=== PATIENT | male | born 1990 | race Hispanic/Latino ===

== ENCOUNTER 2021-05-16 14:15 | Emergency (ER) | payer OTHER, SELFPAY ==
[2021-05-16 14:25] VITALS: BP 128/90; PULSE 70; RESP 14; TEMP 36.9; O2SAT 99; BMI 25.0
--- NOTE | 2021-05-16 14:48 | PC.NURSE ---
assessed by pac, pt reports rash to penis, reports had 5 months ago tested negative for std then and rash resolved and now back, [facility] sent here for eval
--- NOTE | 2021-05-16 15:03 | ED.MALEGU ---
HPI - Male Genitourinary General Chief complaint: Urogenital-Male Stated complaint: Intermittently itching to groin area Time Seen by Provider: 05/16/21 14:33 Source: patient Mode of arrival: Ambulatory Limitations: no limitations History of Present Illness HPI Narrative: Gogo presents today with chief complaint of rash to the shaft of his penis and his groin that started about 1 week ago. He reports that it is irritating and slightly itchy but he denies any significant pain. He has had this recur over the last year few different times and has been evaluated by his PCP. He has had multiple STD checks over the last year all of which have come back negative. He denies any new sexual partners. He has used topical antifungal cream in the past which has helped his symptoms. He is concerned that it keeps coming back. He denies any urinary symptoms, abdominal pain, fever, new topical soaps or lubricants, or any other new exposures. He has no other acute concerns or complaints at this time. Related Data Previous Rx's Medication Instructions Recorded terbinafine HCl 1 % topical cream 1 applic TOPICAL BID #15 g 05/16/21 Allergies Allergy/AdvReac Type Severity Reaction Status Date / Time No Known Drug Allergies Allergy Verified 05/16/21 14:30 Review of Systems Review of Systems Narrative: As per HPI Patient History Social History Smoking Status: Never smoker Smoking Status: Never smoker alcohol intake frequency: 0-2 drinks per day Exam Narrative Exam Narrative: Exam Narrative: Const General: cooperative, healthy appearing, comfortable, no acute distress, well developed and well groomed Nutritional Appearance: average body habitus Orientation: alert and oriented x3 HENMT Head: normal to inspection and atraumatic Ears: hearing grossly normal bilaterally Nose: external nose normal and nares normal Face and sinus: normal facial exam Neck Neck: normal visual inspection and supple Resp Effort & Inspection: normal respiratory effort, able to speak in complete sentences, no audible wheezes, not labored, no nasal flaring and no respiratory distress Neuro General: alert, oriented x3, gait normal, tone normal and moves all extremities Cognition: normal cognition Speech: speech normal Gait: normal gait GI Nondistended, no tenderness with palpation Circumcised, no penile discharge, normal meatus, normal scrotum, normal testicles. Slight irregular shaped erythematous plaque to base of penis. Additional irregular shaped plaques to bilateral inguinal regions. No inguinal lymphadenopathy noted. Psych Appearance: grossly normal and well kempt Mental Status: mental status grossly normal Speech and Movement: speech and movement normal Mood: congruent mood Affect: normal affect Initial Vital Signs Initial Vital Signs: Vital Signs Temperature 98.5 F 05/16/21 14:25 Pulse Rate 70 05/16/21 14:25 Respiratory Rate 14 05/16/21 14:25 Blood Pressure 128/90 05/16/21 14:25 Pulse Oximetry 99 05/16/21 14:25 Course Vital Signs Vital signs: Vital Signs - 8 hr 05/16/21 14:25 Temperature 98.5 F Pulse Rate 70 Respiratory Rate 14 Blood Pressure 128/90 Pulse Oximetry 99 MDM - Male Genitourinary Lab Data Labs: Urine Dip Bedside Urine Glucose Negative Bedside Urine Bilirubin - Negative Bedside Urine Ketone - Negative Urine Specific [place] 1.010 Bedside Urine Occult Blood - Negative Bedside Urine pH 6.0 Bedside Urine Protein - Negative Bedside Urine Urobilinogen - Negative Bedside Urine Nitrite - Negative Bedside Urine Leukocytes - Negative Esterase Discharge Plan Departure Patient Disposition: Home Clinical Impression: Tinea of groin Discharge Date/Time: 05/16/21 15:18 Activity Restrictions/Additional Instructions: It was nice to me this afternoon. Please use this topical antifungal cream to help with your symptoms. Please follow-up with your PCP if symptoms fail to improve as expected. Thank you Paramjit Walters PA-C Prescriptions: New terbinafine HCl 1 % cream 1 applic topical BID Qty: 15 RF: 0
== END 2021-05-16 15:18 | disposition home or self-care (01) ==
PROVIDERS: Emergency Provider Physician Assistant
DX: B35.6 Tinea cruris (principal)
CPT/HCPCS: 81003; 99281; 99282

== ENCOUNTER 2021-08-20 20:03 | Emergency (ER) | payer OTHER, SELFPAY ==
[2021-08-20 20:14] VITALS: BP 136/97; PULSE 63; RESP 16; TEMP 36.9; O2SAT 98
[2021-08-20 20:44] LABS: Add Manual Diff / Slide Review NO; Basophils Absolute Auto 100 /uL (0-100); Basophils Percent Auto 0.7 % (0-2); Eosinophils Absolute Auto 200 /uL (0-450); Eosinophils Percent Auto 1.8 % (2-4); Hematocrit 50.2 % (41-53); Hemoglobin 16.7 g/dL (13.5-17.5); Lymphocytes Absolute Auto 2900 /uL (1100-4500); Mean Corpuscular HGB Conc 33.3 % (30-36); Mean Corpuscular Hemoglobin 28.9 PG (26-34); Mean Corpuscular Volume 86.7 fL (80-100); Monocytes Absolute Auto 700 /uL (0-900); Monocytes Percent Auto 8.6 % (3-14); Neutrophils Absolute Auto 4700 /uL (1500-7000); Neutrophils Percent Auto 54.9 % (50-75); Platelet Count 172 X10^3/uL (150-400); Red Cell Distribution Width 15.5 % (11.6-14.8); White Blood Cell Count 8.6 X10^3/uL (4.5-11.0)
[2021-08-20 20:49] LABS: UR Morphine/Opiate cutoff 300 Negative (Negative); Ur Creatinine Normal (Normal); Ur Specific Gravity Normal (Normal); Urine Amphetamines Negative (Negative); Urine Barbiturates Negative (Negative); Urine Benzodiazepines Negative (Negative); Urine Cocaine Negative (Negative); Urine MDMA Negative (Negative); Urine Methadone Negative (Negative); Urine Methamphetamines Negative (Negative); Urine Oxycodone Negative (Negative); Urine Phencyclidine Negative (Negative); Urine Tetrahydrocannabinol Negative (Negative); Urine Tricyclic Antidepressant Negative (Negative); Urine pH Normal (Normal)
[2021-08-20 20:49] LABS: Acetaminophen < 10 ug/mL (10-30); Alanine Aminotransferase 27 IU/L (<50); Albumin Globulin Ratio 1.5 (1.0-2.8); Alkaline Phosphatase 84 U/L (38-126); Aspartate Aminotransferase 50 IU/L (17-59); BUN Creatinine Ratio 16.7 (6-22); Bilirubin Total 0.6 mg/dL (0.2-1.3); Blood Urea Nitrogen 19 mg/dL (9-20); Calcium 9.5 mg/dL (8.4-10.2); Carbon Dioxide 29 mmol/L (22-32); Chloride 102 mmol/L (98-107); Estimated Glomerular Filt Rate > 60.0 mL/min (>60); Ethanol (ETOH) < 10 mg/dL; Globulin 3.3 g/dL (1.7-4.1); Glucose 95 mg/dL (70-100); HEMOLYSIS 21 (0-50); Potassium 4.3 mmol/L (3.4-5.1); Salicylate < 1.0 mg/dL (<20); Sodium 141 mmol/L (137-145); Total Protein 8.3 g/dL (6.3-8.2)
[2021-08-20 20:58] LABS: Bacteria Urine None Seen; Culture Indicated Urine Cult Not Indicated; RBC Urine 0-1/HPF (0-5/HPF); WBC Urine 0-1/HPF (0-5/HPF)
[2021-08-20 21:01] LABS: COVID19 -Nasal RAPID Negative (Negative)
[2021-08-20 21:44] LABS: Free T4, Direct Thyroxine 0.79 ng/dL (0.78-2.19)
[2021-08-20 21:59] LABS: Thyroid Stimulating Hormone 1.37 uIU/mL (0.47-4.68)
--- NOTE | 2021-08-20 23:22 | ED_ITS ---
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 Been having worsening symptoms over the last 6 months. [place] agreed to [place] inpatient treatment at [facility]. He comes to [facility] ER for medical clearance. He describes no recent fever, cough, chills, chest pain, dyspnea, weight loss, nausea, vomiting, diarrhea. He does note that he had a bit of GI distress when starting recent psychiatric medications but has been doing well otherwise with this. His plan for [place]. [place] [address] [place] the bridge but and turned back [place] Related Data Previous Rx's Medication Instructions Recorded terbinafine HCl 1 % topical cream 1 applic TOPICAL BID #15 g 05/16/21 Allergies Allergy/AdvReac Type Severity Reaction Status Date / Time No Known Drug Allergies Allergy Verified 05/16/21 14:30 Review of Systems Review of Systems Narrative: Remainder of complete review of systems is otherwise unremarkable except for that included in the HPI. Patient History Medical History (Updated 08/20/21 @ 23:46 by Amanda Thomason MD) Major depression Social History Smoking Status: Never smoker Smoking Status: Never smoker alcohol intake frequency: 0-2 drinks per day Exam Narrative Exam Narrative: General: Healthy appearing, in no acute distress. Able to give a complete and coherent history. Well-nourished well-developed HEENT: Moist mucous membranes, normal sclera with reactive pupils, Respiratory: Lungs are clear to auscultation, no wheezing no rales no rhonchi. Full and symmetrical air movement Cardiac: Regular rate and rhythm no murmurs no bruits Abdomen: Soft, nontender, good bowel tones, no flank pain Skin: Warm and dry, no rashes Neurologic: Grossly neurologically intact with no obvious asymmetries or abnor malities Extremities: No trauma, well perfused Psych: Cooperative, flat affect, intermittent eye contact, appropriate insight and affect Initial Vital Signs Initial Vital Signs: Vital Signs Temperature 98.5 F 08/20/21 20:14 Pulse Rate 63 08/20/21 20:14 Respiratory Rate 16 08/20/21 20:14 Blood Pressure 136/97 H 08/20/21 20:14 Pulse Oximetry 98 08/20/21 20:14 Course Orders Ordered: ED Orders 08/20/21 20:24 Acetaminophen Stat Complete Blood Count AUTO DIFF Stat Comprehensive Metabolic Panel Stat Ethanol (ETOH) Stat Free T4, Direct Thyroxine Stat Salicylate Stat Thyroid Stimulating Hormone Stat 08/20/21 20:25 COVID19 -Nasal swab/Pre-Proc Stat Urine Drug Screen, Rapid Stat Urine Microscopic Stat Vital Signs Vital signs: Vital Signs - 8 hr 08/20/21 20:14 Temperature 98.5 F Pulse Rate 63 Respiratory Rate 16 Blood Pressure 136/97 H Pulse Oximetry 98 MDM - Psych Lab Data Result diagrams: 08/20/21 20:24 08/20/21 20:24 Labs: Lab Results 08/20/21 08/20/21 08/20/21 Range/Units 20:24 20:24 20:24 WBC 8.6 (4.5-11.0) X10^3/uL RBC 5.80 (4.5-5.9) X10^6/uL Hgb 16.7 (13.5-17.5) g/dL Hct 50.2 (41-53) % MCV 86.7 (80-100) fL MCH 28.9 (26-34) PG MCHC 33.3 (30-36) % RDW 15.5 H (11.6-14.8) % Plt Count 172 (150-400) X10^3/uL Neut % (Auto) 54.9 (50-75) % Lymph % (Auto) 34.0 (25-40) % [place] % (Auto) 8.6 (3-14) % Eos % (Auto) 1.8 L (2-4) % Baso % (Auto) 0.7 (0-2) % Neut # (Auto) 4700 (9877-2067) /uL Lymph # (Auto) 2900 (4522-8756) /uL [place] # (Auto) 700 (0-900) /uL Eos # (Auto) 200 (0-450) /uL Baso # (Auto) 100 (0-100) /uL Sodium 141 (137-145) mmol/L Potassium 4.3 (3.4-5.1) mmol/L Chloride 102 (98-107) mmol/L Carbon Dioxide 29 (22-32) mmol/L BUN 19 (9-20) mg/dL Creatinine 1.14 (0.66-1.25) mg/dL Estimated GFR > 60.0 (>60) mL/min BUN/Creatinine Ratio 16.7 (6-22) Glucose 95 (70-100) mg/dL Calcium 9.5 (8.4-10.2) mg/dL Total Bilirubin 0.6 (0.2-1.3) mg/dL AST 50 (17-59) IU/L ALT 27 (<50) IU/L Alkaline Phosphatase 84 (38-126) U/L Total Protein 8.3 H (6.3-8.2) g/dL Albumin 5.0 (3.5-5.0) g/dL Globulin 3.3 (1.7-4.1) g/dL Albumin/Globulin Ratio 1.5 (1.0-2.8) TSH 1.37 (0.47-4.68) uIU/mL Free T4 0.79 (0.78-2.19) ng/dL Urine RBC (0-5/HPF) Urine WBC (0-5/HPF) Urine Bacteria (None) Ur Culture Indicated? Salicylates < 1.0 (<20) mg/dL U Opiates 300ng/mL cut (Negative) Ur Oxycodone Screen (Negative) Urine Methadone Screen (Negative) Acetaminophen < 10 L (10-30) ug/mL Ur Barbiturates Screen (Negative) U Tricyclic Antidepress (Negative) Ur Phencyclidine Scrn (Negative) Ur Amphetamines Screen (Negative) U Methamphetamines Scrn (Negative) Ur MDMA Scrn (Ecstasy) (Negative) U Benzodiazepines Scrn (Negative) Urine Cocaine Screen (Negative) U Marijuana (THC) Screen (Negative) Ethyl Alcohol < 10 ( - 10) mg/dL SARS-CoV-2 (PCR) (Negative) 08/20/21 08/20/21 08/20/21 Range/Units 20:25 20:25 20:25 WBC (4.5-11.0) X10^3/uL RBC (4.5-5.9) X10^6/uL Hgb (13.5-17.5) g/dL Hct (41-53) % MCV (80-100) fL MCH (26-34) PG MCHC (30-36) % RDW (11.6-14.8) % Plt Count (150-400) X10^3/uL Neut % (Auto) (50-75) % Lymph % (Auto) (25-40) % [place] % (Auto) (3-14) % Eos % (Auto) (2-4) % Baso % (Auto) (0-2) % Neut # (Auto) (8359-3469) /uL Lymph # (Auto) (4585-8276) /uL [place] # (Auto) (0-900) /uL Eos # (Auto) (0-450) /uL Baso # (Auto) (0-100) /uL Sodium (137-145) mmol/L Potassium (3.4-5.1) mmol/L Chloride (98-107) mmol/L Carbon Dioxide (22-32) mmol/L BUN (9-20) mg/dL Creatinine (0.66-1.25) mg/dL Estimated GFR (>60) mL/min BUN/Creatinine Ratio (6-22) Glucose (70-100) mg/dL Calcium (8.4-10.2) mg/dL Total Bilirubin (0.2-1.3) mg/dL AST (17-59) IU/L ALT (<50) IU/L Alkaline Phosphatase (38-126) U/L Total Protein (6.3-8.2) g/dL Albumin (3.5-5.0) g/dL Globulin (1.7-4.1) g/dL Albumin/Globulin Ratio (1.0-2.8) TSH (0.47-4.68) uIU/mL Free T4 (0.78-2.19) ng/dL Urine RBC 0-1/hpf (0-5/HPF) Urine WBC 0-1/hpf (0-5/HPF) Urine Bacteria None seen (None) Ur Culture Indicated? Cult not indicated Salicylates (<20) mg/dL U Opiates 300ng/mL cut Negative (Negative) Ur Oxycodone Screen Negative (Negative) Urine Methadone Screen Negative (Negative) Acetaminophen (10-30) ug/mL Ur Barbiturates Screen Negative (Negative) U Tricyclic Antidepress Negative (Negative) Ur Phencyclidine Scrn Negative (Negative) Ur Amphetamines Screen Negative (Negative) U Methamphetamines Scrn Negative (Negative) Ur MDMA Scrn (Ecstasy) Negative (Negative) U Benzodiazepines Scrn Negative (Negative) Urine Cocaine Screen Negative (Negative) U Marijuana (THC) Screen Negative (Negative) Ethyl Alcohol ( - 10) mg/dL SARS-CoV-2 (PCR) Negative (Negative) Urine Dip Bedside Urine Glucose Negative Bedside Urine Bilirubin - Negative Bedside Urine Ketone - Negative Urine Specific [place] 1.020 Bedside Urine Occult Blood - Negative Bedside Urine pH 6 Bedside Urine Protein - Negative Bedside Urine Urobilinogen - Negative Bedside Urine Nitrite - Negative Bedside Urine Leukocytes +/- 15 Esterase MDM Narrative Medical decision making narrative: 31-year-old gentleman with major depression and suicidal ideation recently admitted to inpatient psychiatric care at [facility] from 06/05-06/11. Seen by behavioral health on [facility] today with concern for significant suicidal ideation and recommendations for inpatient psychiatric admission. He is medically cleared Care is reviewed with Dr Ramos psychiatrist, and patient is acceped for inpatient care at [facility]. Commander from [facility] had contacted [facility] earlier today and had indicated that he would be safe for p.o. be transfer if there were to people from his unit available to drive with him. One of these people cannot be his significant other. 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 Discharge Plan Departure Patient Disposition: Xfer Psychiatric Hosp Clinical Impression: Suicidal ideation Depression Qualifiers: Depression Type: major depressive disorder Major depression recurrence: rec urrent Active/Remission status: currently active Major depression episode severity: severe Psychotic features: without psychotic features Qualified Code(s): F33.2 - Major depressive disorder, recurrent severe without psychotic features
[2021-08-21 00:13] VITALS: BP 129/73; PULSE 70; RESP 16; O2SAT 98
== END 2021-08-21 00:16 ==
PROVIDERS: Emergency Provider Emergency Medicine
DX: R45.851 Suicidal ideations (principal); F32.9 Major depressive disorder, single episode, unspecified; Z20.822 Contact with and (suspected) exposure to COVID-19
CPT/HCPCS: 80053; 80305; 80320; 80329; 81003; 81015; 84439; 84443; 85025; 87635; 99283; C9803; G0480

== ENCOUNTER 2021-09-04 17:35 | Emergency (ER) | payer OTHER, SELFPAY ==
[2021-09-04 17:46] VITALS: BP 134/83; PULSE 83; RESP 18; TEMP 36.8; O2SAT 98; BMI 26.4
--- NOTE | 2021-09-04 17:46 | DI.RAD.S_ITS ---
PROCEDURE: XR FOOT LT MIN 3V INDICATIONS: dropped 45lb weight on L foot TECHNIQUE: Three views of the foot were acquired. COMPARISON: None. FINDINGS: Bones: No fractures or dislocations. No suspicious bony lesions. Soft tissues: No tibiotalar joint effusion. Achilles tendon appears normal. IMPRESSION: Intact left foot. Dictated by: Paola Mcnair M.D. on 09/04/2021 at 18:09 Approved by: Paola Mcnair M.D. on 09/04/2021 at 18:10
--- NOTE | 2021-09-04 19:05 | ED.LOWEXIN ---
HPI - Extremity Injury (Lower) General Chief Complaint: Extremity Injury, Lower Stated Complaint: dropped weight on left foot Time Seen by Provider: 09/04/21 19:05 Source: patient Mode of arrival: Ambulatory Limitations: no limitations History of Present Illness HPI Narrative: 31-year-old gentleman with no significant medical history was at the gym 48 hours ago and had a 45 lb flat weight fall over and land on his left foot. He was able to complete his work out and did not think anything of it however over the ensuing 48 hours he has had increasing swelling, ecchymosis pain and at this point is having difficulty bearing weight on the foot. He comes in for further evaluation. Related Data Previous Rx's Medication Instructions Recorded terbinafine HCl 1 % topical cream 1 applic TOPICAL BID #15 g 05/16/21 Allergies Allergy/AdvReac Type Severity Reaction Status Date / Time No Known Drug Allergies Allergy Verified 09/04/21 17:45 Review of Systems Review of Systems Narrative: Pertinent positive and negative findings as per HPI Remainder of review of systems is otherwise unremarkable for Constitutional: Fevers, chills, weakness ENT: No sore throat, neck pain, CV: Chest pain, palpitations, Respiratory: Cough, wheeze, dyspnea GI: Nausea, vomiting, diarrhea, : Dysuria, hematuria, Patient History Medical History Major depression Social History Smoking Status: Never smoker Smoking Status: Never smoker alcohol intake frequency: 0-2 drinks per day Substance Use Type: does not use Exam Narrative Exam Narrative: General: Alert appropriate in no acute distress Respiratory: Able to speak in full sentences, no obvious respiratory distress Skin: No obvious rashes, warm and dry Neurologic: Grossly intact no obvious asymmetries or abnormalities Psych: appropriate insight and affect, cooperative Extremity: Left foot with moderate amount of swelling ecchymosis around the base of all toes and the lateral edge of his foot. Does have full range of motion at the ankle and all toes. He is neurovascularly intact. Good blood flow to all toes. Initial Vital Signs Initial Vital Signs: Vital Signs Temperature 98.3 F 09/04/21 17:46 Pulse Rate 83 09/04/21 17:46 Respiratory Rate 18 09/04/21 17:46 Blood Pressure 134/83 09/04/21 17:46 Pulse Oximetry 98 09/04/21 17:46 Course Orders Ordered: ED Orders 09/04/21 17:46 XR foot LT min 3V Stat Vital Signs Vital signs: Vital Signs - 8 hr 09/04/21 17:46 Temperature 98.3 F Pulse Rate 83 Respiratory Rate 18 Blood Pressure 134/83 Pulse Oximetry 98 MDM - Extremity Injury (Lower) Imaging Data X-ray left foot: Radiologist's Impression: FINDINGS:? ? Bones:? No fractures or dislocations.? No suspicious bony lesions.? ? Soft tissues:? No tibiotalar joint effusion.? Achilles tendon appears normal.? ? ? IMPRESSION:? Intact left foot. ? ? Dictated by: Paola Mcnair M.D. on 09/04/2021 at 18:09? ?? MDM Narrative Medical decision making narrative: 31-year-old gentleman with significant contusion to the left foot with no evidence of bony injury. Of foot is wrapped with an Taj wrap to help with swelling and a bit of compression relief for pain. We discussed appropriate pain control keep foot elevated. Reassurance is given and photographs of his x-ray or shared. He is safe for home discharge Discharge Plan Departure Patient Disposition: Home Clinical Impression: Contusion of foot, left Qualifiers: Encounter type: initial encounter Qualified Code(s): S90.32XA - Contusion of left foot, initial encounter Instructions: DI for Foot Fracture Activity Restrictions/Additional Instructions: Thank you for coming in today The x-rays show that you did not break any bones in your foot You clearly broke some blood vessels and have a moderate amount of blood that is trying to work its way out of your foot. This is causing the swelling, the bruising and the pain. Using 400 mg of ibuprofen (2 [id number] pills) and 1 Tylenol every 6 hours can be very helpful in controlling pain. Using an Taj wrap for bit of compression to the foot will be helpful in keeping the foot elevated as much as you are able to do will also be helpful. It is okay to walk on the foot, you will not make the injury worse by doing so. I hope you heal quickly Prescriptions: No Action terbinafine HCl 1 % cream 1 applic topical BID Qty: 15 RF: 0
[2021-09-04 19:30] VITALS: BP 115/76; PULSE 79; RESP 14; O2SAT 95
== END 2021-09-04 19:44 | disposition home or self-care (01) ==
PROVIDERS: Emergency Provider Emergency Medicine
DX: S90.32XA Contusion of left foot, initial encounter (principal); W22.8XXA Striking against or struck by other objects, initial encounter
CPT/HCPCS: 73630; 99283

== ENCOUNTER → 2021-11-30 15:39 | Outpatient (CLI) | payer OTHER, SELFPAY ==
--- NOTE | 2021-11-30 | DI.MRI.S_ITS ---
PROCEDURE: MR ELBOW RT WO CON INDICATIONS: PAIN IN RIGHT ELBOW TECHNIQUE: Noncontrast coronal proton density fast spin echo and T2 fast spin echo with fat saturation, axial and sagittal T1 spin echo and T2 fast spin echo with fat saturation through the elbow. COMPARISON: [facility], CR, XR ELBOW 3+ VIEWS RIGHT, 11/20/2021, 13:36. FINDINGS: Image quality: Excellent. Lateral structures: The lateral ulnar collateral ligament and radial collateral ligament both appear intact. The overlying common extensor tendon demonstrates mild tendinosis. Medial structures: The ulnar collateral ligament appears intact. The overlying common flexor tendon appears normal. The ulnar nerve appears normal in size and signal within the cubital tunnel. Anterior structures: There is mild insertional tendinosis of the distal biceps tendon. The brachialis tendon is intact. No bicipitoradial bursal fluid. The median and radial neurovascular bundles appear normal; no focal muscle atrophy to suggest nerve impingement. Posterior structures: The conjoint triceps tendon from the long and lateral heads appears intact. The medial head of the triceps tendon also appears normal, with direct muscle insertion onto the olecranon. No olecranon bursal fluid. Bone and cartilage: No bone marrow contusions or fractures. No osteochondral injuries. IMPRESSION: 1. Mild tendinosis of the common extensor tendon at the origin. 2. Mild insertional tendinosis of the distal biceps tendon. 3. No acute trabecular bone injury. No significant ligament injury or tendon tear is seen. Dictated by: Myles Moreno M.D. on 11/30/2021 at 16:32 Approved by: Myles Moreno M.D. on 11/30/2021 at 16:36
== END ==
PROVIDERS: PCP Physician Assistant; Referring Provider Student in an Organized Health Care Education/Training Program; Visit Provider Student in an Organized Health Care Education/Training Program
DX: M25.521 Pain in right elbow (principal); G89.29 Other chronic pain
CPT/HCPCS: 73221

== ENCOUNTER 2022-01-14 14:30 | Outpatient (RCR) | payer OTHER, SELFPAY ==
--- NOTE | 2021-11-22 16:28 | PT.OIE ---
Current Diagnoses Muscle weakness (generalized) (11/22/21) Bicipital tendinitis, unspecified shoulder (11/22/21) Bicipital tendinitis, right shoulder (11/22/21) Past Medical History (Last Reviewed 09/04/21 @ 19:22 by Amanda Thomason MD) Major depression Visit Care Team Role Provider Type Bello Muñoz PA-C Attending Provider Non-Staff Primary Care Provider Referring Provider Specialty: Medical Address: [address] [place] [address], [id number] Phone: Email: Physical Therapy Initial Evaluation PT-OP-A Visit Information Start: 11/16/21 18:20 Freq: Status: Active Protocol: Document 11/22/21 14:19 LRN (Rec: 11/22/21 16:25 LRN [id number]) Out-Patient Physical Therapy Visit Information Visit Information Visit Type Initial Evaluation Visit Start Time 14:19 Visit Stop Time 15:10 Total Visit Minutes 51 Visit Number 1 Evaluation Information Evaluation Date 11/22/21 Precautions Precautions Medication controlled depression. Dislocated R shoulder x 2 ( 2019) doing pull ups. PT-OP-B Current Condition Start: 11/16/21 18:20 Freq: Status: Active Protocol: Document 11/22/21 14:19 LRN (Rec: 11/22/21 16:25 LRN [id number]) Current Condition History of Current Condition Onset Date 6 months ago Current Complaints Pain with flexing of the R arm that dissapates over time. History of Current Condition Was doing pull ups and noticed a sharp pain on inside of elbow. Stopped working out for 3-4 days and took IBP because any lifting caused a lot of pain. Any time bending the elbow causes pain. Now affecting daily activities ( carrying groceries or moving things flairs it up). R [place]. Recent x-rays at [facility]. Hasn't worked out for 6 wks since the holidays and is limited in what he can do to prevent flare up of R elbow, and it hasn't improved . PT usually biannually, but since Covid and Bicep injury, PT test has been put on hold. Pt is R handed. Prior Treatments and Tests X-ray R Elbow taken at [facility]. Ultrasound to R elbow. Ices it, wears compression sock on elbow, IBP, TENS unit . Future Testing and Treatments Planned Referred to Dr. Tobin, orthopedist. MRI planned ~ in 2 weeks, then will see orthopedist. Treatment Goals Patient/Caregiver Goals Pt goal with therapy is to decrease the pain to do PT ( physical training). Must PT 2x/year for [employer] (push ups, run, sit ups). Pt goal is to improve ability to carry grocery into house; housework chores (taking out trash, lifting 20-25#). Prior Functional Status Baseline Function- ADL's Independent Baseline Function- Mobility Independent Baseline Function- Recreation/Hobbies Exercised at gym. Row 65#. Can plate of 45# wgt normally. Current Functional Impairments (Reported) Functional Limitations- ADL's 20-25# lifting causes considerable pain. Unable to do pull ups, carry groceries or lift and move objects. Functional Limitations- Work/School Has not had 2x/year, PT assessment for [employer] (push ups, run, sit ups). Functional Limitations- Recreation/ Exercises except for pulling Hobbies motion at elbow. Has stopped body ex's (able to do lat pull down w/arms pulled in, but not in V-position). Exercises 3-4 days/week but not doing elbow flex ex's. Personal Factors Other Personal Factors That May Effect Depression Therapy/Recovery PT exercising group 3-4 days/ week. PT-OP-C Subjective Start: 11/16/21 18:20 Freq: Status: Active Protocol: Document 11/22/21 14:19 LRN (Rec: 11/22/21 16:25 LRN [id number]) Patient Questionnaires Quick Dash- Upper Extremity Quick Dash UE Score 31.81 Quick Dash UE Impairment 20 to 39% Impaired (Score 20- 39) OP-PT Pain Assessment Pain Assessment Grid Paper Pain Assessment Grid Completed Yes Location R elbow Pain Location Details R inner elbow pain Intensity 6 Scale Used Numeric (0 - 10) Description Tender Frequency With bending of R elbow Pain Duration 3 days Pain Aggravating Factors ADL's,Exercise,Lifting Pain Alleviating Factors Cold Other Pain Alleviating Factors Compression wrapping PT-OP-H Neuro Start: 11/16/21 18:20 Freq: Status: Active Protocol: Document 11/22/21 14:19 LRN (Rec: 11/22/21 16:25 LRN [id number]) Sensation Evaluation Gross Sensation Gross Sensation WNL Deep Tendon Reflex & Clonus Assessment Deep Tendon Reflex Right Brachioradialis Deep Tendon Reflex 2+ Normal Left Brachioradialis Deep Tendon Reflex 2+ Normal Right Tricep Deep Tendon Reflex 0 Absent Left Tricep Deep Tendon Reflex 0 Absent Right Bicep Deep Tendon Reflex 0 Absent Left Bicep Deep Tendon Reflex 0 Absent PT-OP-J Posture/Palpation/Skin Start: 11/16/21 18:20 Freq: Status: Active Protocol: Document 11/22/21 14:19 LRN (Rec: 11/22/21 16:25 LRN [id number]) Posture Evaluation Position Standing Head/C-Spine Posture Forward Head L-Spine Posture Decreased Lordosis Shoulder Posture (R) Elevated Comments Posture Comments C-curve of spine with apex. Slight fwd head. Palpation Assessment Location R biceps Palpation Location Biceps @ Radius & Brachialis @ Ulna Tendon Palpation Findings Soft Tissue Tightness, Tenderness PT-OP-K Range of Motion Start: 11/16/21 18:20 Freq: Status: Active Protocol: Document 11/22/21 14:19 LRN (Rec: 11/22/21 16:25 LRN [id number]) Elbow/Forearm Range of Motion Elbow/Forearm Right Passive Elbow/Forearm ROM WFL Yes ROM Testing Position Sitting Comments No pain with AROM Left Active Elbow/Forearm ROM WFL Yes ROM Testing Position Sitting PT-OP-M Strength Start: 11/16/21 18:20 Freq: Status: Active Protocol: Document 11/22/21 14:19 LRN (Rec: 11/22/21 16:25 LRN [id number]) Shoulder Strength Shoulder Manual Muscle Testing Right Flexion 5 Normal Extension 5 Normal Abduction (C5) 4 Good Adduction 4 Good External Rotation 4 Good Internal Rotation 4 Good Left Comments Generally 5/5. Elbow/Forearm Strength Elbow and Forearm Manual Muscle Testing Right Flexion (C6) 4 Good Extension (C7) 5 Normal Pronation 4 Good Supination 5 Normal Comments Brachioradialis 5/5 without pain Biceps 4/5 with pain Left Flexion (C6) 5 Normal Extension (C7) 5 Normal Pronation 5 Normal Supination 5 Normal Comments Generally 5/5. Wrist Strength Wrist Manual Muscle Testing Right Comments Generally 5/5 Left Comments Generally 5/5 PT-OP-Q Treatments Start: 11/16/21 18:20 Freq: Status: Active Protocol: Document 11/22/21 14:19 LRN (Rec: 11/22/21 16:25 LRN [id number]) Self-Care/Home Management Treatment Education Patient Education Home Exercise Program,Pain Management Other Education Discussed use of Rest, Ice & Compression to decrease R elbow pain, and to increase use of Ice and compression for pain. PT chose to Ice at home. Discussed results of evaluation, goals, and plan of care (POC). Pt agreeable to goals and POC. Activities Self-Care/Home Management Activities I/S pt in TBand strengthening ex for R shoulder (flex, ext, AB, AD, ER, IR), placing TBand above the elbow to avoid use of biceps for now. Issued Lev 3 TBand and white strap. PT-OP-T Assessment and Plan Start: 11/16/21 18:20 Freq: Status: Active Protocol: Document 11/22/21 14:19 LRN (Rec: 11/22/21 16:25 LRN [id number]) Physical Therapy Assessment Rehab Potential Rehabilitation Potential Excellent Evaluation Complexity Number of Personal Factors/Comorbidities 1-2 Number of Body Systems Impaired 4 or More Clinical Presentation at Evaluation Evolving Impairments Impairments Activity Tolerance,Pain, Posture,Strength Goals Three Impairment Pain 6/10 with bending of elbow activities Impairment Pain that lingers for days when using R elbow flexors. Pain limiting function per UE Quickdash score of 31 (20-39% impaired, score 20-39) Short Term Goal (STG) Pt will be able to lift light weights groceries, with R UE with pain no greater than 3/10 . STG Duration 01/08/22 Armed Security Officer Goal (LTG) Pt will be able to return to prior level of function of Physical Training, using R arm (20-25#) with intermittent mild to no R biceps pain. LTG Duration 02/22/22 Two Impairment Decreased R elbow/shoulder strength Impairment R shoulder: AB, AD, ER, IR is 4/5 (Flex/Ext is 5/5). R elbow: flex/pronation is 4/ 5. Short Term Goal (STG) Pt will be educated in progressive R shoulder/elbow strengthening, scapular depression, & Trunk L SB stretch ex. STG Duration 01/08/22 Armed Security Officer Goal (LTG) Pt will demonstrate improved R elbow strength to 4+/5 to 5/5 ) with ability to carry groceries into house or do housework chores (taking out trash, lifting 20-25#) with minimal to no pain. LTG Duration 02/22/22 One Impairment Lacks appropriate self care HEP Impairment Posture: R shoulder elevated & C-curve of spine with apex on the left. Short Term Goal (STG) Pt will be educated R elbow edema & pain management. PT will be educated in proper posture (correct R shoulder elevation and spinal C-curve) STG Duration 11/22/21 (11/22/21: MET GOAL ) Mcc Goal (LTG) Pt will be independent in a self care HEP of R shoulder/ elbow strengthening ex's. LTG Duration 02/22/22 Assessment Summary Assessment Pt presents with R biceps tendonitis as reproduced with resisted R elbow flexion. His R Biceps appears larger compared to the left, but the pt is R hand dominant. He has R shoulder weakness, possibly from prior trauma, history of R shoulder dislocation x 2 in 2019. Pt's R anterior elbow pain was reproduced with resisted elbow flexion and no change with cervical traction. His UE neural tension will be assesed at next appointment . His active R elbow mobility is normal and pain free. The pt will benefit from skilled phyiscal therapy to decrease R biceps tendon at elbow pain, improve his R UE strength and function and educate pt in proper self care. Physical Therapy Plan Frequency and Duration Frequency of Treatment 2x/Week Duration of Treatment 12 treatment visits Plan of Care Start Date 11/22/21 Plan of Care End Date 02/22/22 Therapeutic Interventions Therapeutic Interventions Home Exercise Program,Joint Mobilizations,Manual Therapy, Neuromuscular Re-education, Patient/Caregiver Education, Self-Care/Home Management,Soft Tissue Mobilization,Taping, Therapeutic Activities, Therapeutic Exercises Modalities Cold Pack/Ice Massage,Electric Stimulation,Hot Packs, Iontophoresis,Ultrasound Other Therapeutic Interventions Iontophoresis with 4mg/mL Dexamethasone with Sodium Phosphate. Next Visit Focus/Plan Next Note Type Treatment Note Next Visit Plan Check UE neural tension, and pain with cervical compression and Spurlings Test. Ultrasound to R biceps tendon, f/b R shoulder strengthening review and add scapular depression and trunk L SB stretch; R wrist and light elbow strengthening, End with Iontophoresis if POC signed by referring physician, or try K-tape for biceps relaxation and end with CP.
--- NOTE | 2021-11-22 16:33 | PT.OIE ---
Current Diagnoses Muscle weakness (generalized) (11/22/21) Bicipital tendinitis, unspecified shoulder (11/22/21) Bicipital tendinitis, right shoulder (11/22/21) Past Medical History (Last Reviewed 09/04/21 @ 19:22 by Amanda Thomason MD) Major depression Visit Care Team Role Provider Type Bello Muñoz PA-C Attending Provider Non-Staff Primary Care Provider Referring Provider Specialty: Medical Address: [address] [place] [address], [id number] Phone: Email: Physical Therapy Initial Evaluation PT-OP-A Visit Information Start: 11/16/21 18:20 Freq: Status: Active Protocol: Document 11/22/21 14:19 LRN (Rec: 11/22/21 16:25 LRN [id number]) Out-Patient Physical Therapy Visit Information Visit Information Visit Type Initial Evaluation Visit Start Time 14:19 Visit Stop Time 15:10 Total Visit Minutes 51 Visit Number 1 Evaluation Information Evaluation Date 11/22/21 Precautions Precautions Medication controlled depression. Dislocated R shoulder x 2 ( 2019) doing pull ups. PT-OP-B Current Condition Start: 11/16/21 18:20 Freq: Status: Active Protocol: Document 11/22/21 14:19 LRN (Rec: 11/22/21 16:25 LRN [id number]) Current Condition History of Current Condition Onset Date 6 months ago Current Complaints Pain with flexing of the R arm that dissapates over time. History of Current Condition Was doing pull ups and noticed a sharp pain on inside of elbow. Stopped working out for 3-4 days and took IBP because any lifting caused a lot of pain. Any time bending the elbow causes pain. Now affecting daily activities ( carrying groceries or moving things flairs it up). R inner [place] pain[place]. Recent x-rays at [facility]. Hasn't worked out for 6 wks since the holidays and is limited in what he can do to prevent flare up of R elbow, and it hasn't improved . PT usually biannually, but since Covid and Bicep injury, PT test has been put on hold. Pt is R handed. Prior Treatments and Tests X-ray R Elbow taken at [facility]. Ultrasound to R elbow. Ices it, wears compression sock on elbow, IBP, TENS unit . Future Testing and Treatments Planned Referred to Dr. Tobin, orthopedist. MRI planned ~ in 2 weeks, then will see orthopedist. Treatment Goals Patient/Caregiver Goals Pt goal with therapy is to decrease the pain to do PT ( physical training). Must PT 2x/year for [employer] (push ups, run, sit ups). Pt goal is to improve ability to carry grocery into house; housework chores (taking out trash, lifting 20-25#). Prior Functional Status Baseline Function- ADL's Independent Baseline Function- Mobility Independent Baseline Function- Recreation/Hobbies Exercised at gym. Row 65#. Can plate of 45# wgt normally. Current Functional Impairments (Reported) Functional Limitations- ADL's 20-25# lifting causes considerable pain. Unable to do pull ups, carry groceries or lift and move objects. Functional Limitations- Work/School Has not had 2x/year, PT assessment for [employer] (push ups, run, sit ups). Functional Limitations- Recreation/ Exercises except for pulling Hobbies motion at elbow. Has stopped body ex's (able to do lat pull down w/arms pulled in, but not in V-position). Exercises 3-4 days/week but not doing elbow flex ex's. Personal Factors Other Personal Factors That May Effect Depression Therapy/Recovery PT exercising group 3-4 days/ week. PT-OP-C Subjective Start: 11/16/21 18:20 Freq: Status: Active Protocol: Document 11/22/21 14:19 LRN (Rec: 11/22/21 16:25 LRN [id number]) Patient Questionnaires Quick Dash- Upper Extremity Quick Dash UE Score 31.81 Quick Dash UE Impairment 20 to 39% Impaired (Score 20- 39) OP-PT Pain Assessment Pain Assessment Grid Paper Pain Assessment Grid Completed Yes Location R elbow Pain Location Details R inner elbow pain Intensity 6 Scale Used Numeric (0 - 10) Description Tender Frequency With bending of R elbow Pain Duration 3 days Pain Aggravating Factors ADL's,Exercise,Lifting Pain Alleviating Factors Cold Other Pain Alleviating Factors Compression wrapping PT-OP-H Neuro Start: 11/16/21 18:20 Freq: Status: Active Protocol: Document 11/22/21 14:19 LRN (Rec: 11/22/21 16:25 LRN [id number]) Sensation Evaluation Gross Sensation Gross Sensation WNL Deep Tendon Reflex & Clonus Assessment Deep Tendon Reflex Right Brachioradialis Deep Tendon Reflex 2+ Normal Left Brachioradialis Deep Tendon Reflex 2+ Normal Right Tricep Deep Tendon Reflex 0 Absent Left Tricep Deep Tendon Reflex 0 Absent Right Bicep Deep Tendon Reflex 0 Absent Left Bicep Deep Tendon Reflex 0 Absent PT-OP-J Posture/Palpation/Skin Start: 11/16/21 18:20 Freq: Status: Active Protocol: Document 11/22/21 14:19 LRN (Rec: 11/22/21 16:25 LRN [id number]) Posture Evaluation Position Standing Head/C-Spine Posture Forward Head L-Spine Posture Decreased Lordosis Shoulder Posture (R) Elevated Comments Posture Comments C-curve of spine with apex. Slight fwd head. Palpation Assessment Location R biceps Palpation Location Biceps @ Radius & Brachialis @ Ulna Tendon Palpation Findings Soft Tissue Tightness, Tenderness PT-OP-K Range of Motion Start: 11/16/21 18:20 Freq: Status: Active Protocol: Document 11/22/21 14:19 LRN (Rec: 11/22/21 16:25 LRN [id number]) Elbow/Forearm Range of Motion Elbow/Forearm Right Passive Elbow/Forearm ROM WFL Yes ROM Testing Position Sitting Comments No pain with AROM Left Active Elbow/Forearm ROM WFL Yes ROM Testing Position Sitting PT-OP-M Strength Start: 11/16/21 18:20 Freq: Status: Active Protocol: Document 11/22/21 14:19 LRN (Rec: 11/22/21 16:25 LRN [id number]) Shoulder Strength Shoulder Manual Muscle Testing Right Flexion 5 Normal Extension 5 Normal Abduction (C5) 4 Good Adduction 4 Good External Rotation 4 Good Internal Rotation 4 Good Left Comments Generally 5/5. Elbow/Forearm Strength Elbow and Forearm Manual Muscle Testing Right Flexion (C6) 4 Good Extension (C7) 5 Normal Pronation 4 Good Supination 5 Normal Comments Brachioradialis 5/5 without pain Biceps 4/5 with pain Left Flexion (C6) 5 Normal Extension (C7) 5 Normal Pronation 5 Normal Supination 5 Normal Comments Generally 5/5. Wrist Strength Wrist Manual Muscle Testing Right Comments Generally 5/5 Left Comments Generally 5/5 PT-OP-Q Treatments Start: 11/16/21 18:20 Freq: Status: Active Protocol: Document 11/22/21 14:19 LRN (Rec: 11/22/21 16:25 LRN [id number]) Self-Care/Home Management Treatment Education Patient Education Home Exercise Program,Pain Management Other Education Discussed use of Rest, Ice & Compression to decrease R elbow pain, and to increase use of Ice and compression for pain. PT chose to Ice at home. Discussed results of evaluation, goals, and plan of care (POC). Pt agreeable to goals and POC. Activities Self-Care/Home Management Activities I/S pt in TBand strengthening ex for R shoulder (flex, ext, AB, AD, ER, IR), placing TBand above the elbow to avoid use of biceps for now. Issued Lev 3 TBand and white strap. PT-OP-T Assessment and Plan Start: 11/16/21 18:20 Freq: Status: Active Protocol: Document 11/22/21 14:19 LRN (Rec: 11/22/21 16:25 LRN [id number]) Physical Therapy Assessment Rehab Potential Rehabilitation Potential Excellent Evaluation Complexity Number of Personal Factors/Comorbidities 1-2 Number of Body Systems Impaired 4 or More Clinical Presentation at Evaluation Evolving Impairments Impairments Activity Tolerance,Pain, Posture,Strength Goals Three Impairment Pain 6/10 with bending of elbow activities Impairment Pain that lingers for days when using R elbow flexors. Pain limiting function per UE Quickdash score of 31 (20-39% impaired, score 20-39) Short Term Goal (STG) Pt will be able to lift light weights groceries, with R UE with pain no greater than 3/10 . STG Duration 01/08/22 Toe Stapler Goal (LTG) Pt will be able to return to prior level of function of Physical Training, using R arm (20-25#) with intermittent mild to no R biceps pain. LTG Duration 02/22/22 Two Impairment Decreased R elbow/shoulder strength Impairment R shoulder: AB, AD, ER, IR is 4/5 (Flex/Ext is 5/5). R elbow: flex/pronation is 4/ 5. Short Term Goal (STG) Pt will be educated in progressive R shoulder/elbow strengthening, scapular depression, & Trunk L SB stretch ex. STG Duration 01/08/22 Toe Stapler Goal (LTG) Pt will demonstrate improved R elbow strength to 4+/5 to 5/5 ) with ability to carry groceries into house or do housework chores (taking out trash, lifting 20-25#) with minimal to no pain. LTG Duration 02/22/22 One Impairment Lacks appropriate self care HEP Impairment Posture: R shoulder elevated & C-curve of spine with apex on the left. Short Term Goal (STG) Pt will be educated R elbow edema & pain management. PT will be educated in proper posture (correct R shoulder elevation and spinal C-curve) STG Duration 11/22/21 (11/22/21: MET GOAL ) Custodial Goal (LTG) Pt will be independent in a self care HEP of R shoulder/ elbow strengthening ex's. LTG Duration 02/22/22 Assessment Summary Assessment Pt presents with R biceps tendonitis as reproduced with resisted R elbow flexion. His R Biceps appears larger compared to the left, but the pt is R hand dominant. He has R shoulder weakness, possibly from prior trauma, history of R shoulder dislocation x 2 in 2019. Pt's R anterior elbow pain was reproduced with resisted elbow flexion and no change with cervical traction. His UE neural tension will be assesed at next appointment . His active R elbow mobility is normal and pain free. The pt will benefit from skilled phyiscal therapy to decrease R biceps tendon at elbow pain, improve his R UE strength and function and educate pt in proper self care. Physical Therapy Plan Frequency and Duration Frequency of Treatment 2x/Week Duration of Treatment 12 treatment visits Plan of Care Start Date 11/22/21 Plan of Care End Date 02/22/22 Therapeutic Interventions Therapeutic Interventions Home Exercise Program,Joint Mobilizations,Manual Therapy, Neuromuscular Re-education, Patient/Caregiver Education, Self-Care/Home Management,Soft Tissue Mobilization,Taping, Therapeutic Activities, Therapeutic Exercises Modalities Cold Pack/Ice Massage,Electric Stimulation,Hot Packs, Iontophoresis,Ultrasound Other Therapeutic Interventions Iontophoresis with 4mg/mL Dexamethasone with Sodium Phosphate. Next Visit Focus/Plan Next Note Type Treatment Note Next Visit Plan Check UE neural tension, and pain with cervical compression and Spurlings Test. Ultrasound to R biceps tendon, f/b R shoulder strengthening review and add scapular depression and trunk L SB stretch; R wrist and light elbow strengthening, End with Iontophoresis if POC signed by referring physician, or try K-tape for biceps relaxation and end with CP.
--- NOTE | 2021-11-27 16:38 | PT.OTN ---
Current Diagnoses Muscle weakness (generalized) (11/27/21) Bicipital tendinitis, unspecified shoulder (11/27/21) Bicipital tendinitis, right shoulder (11/27/21) Physical Therapy Treatment Note PT-OP-A Visit Information Start: 11/16/21 18:20 Freq: Status: Active Protocol: Document 11/27/21 14:21 LRN (Rec: 11/27/21 16:37 LRN [id number]) Out-Patient Physical Therapy Visit Information Visit Information Visit Type Treatment Note Visit Start Time 14:21 Visit Stop Time 15:04 Total Visit Minutes 43 Visit Number 2 Evaluation Information Evaluation Date 11/22/21 Precautions Precautions Medication controlled depression. Dislocated R shoulder x 2 ( 2019) doing pull ups. PT-OP-B Current Condition Start: 11/16/21 18:20 Freq: Status: Active Protocol: Document 11/22/21 14:19 LRN (Rec: 11/22/21 16:25 LRN [id number]) Current Condition History of Current Condition Onset Date 6 months ago Current Complaints Pain with flexing of the R arm that dissapates over time. History of Current Condition Was doing pull ups and noticed a sharp pain on inside of elbow. Stopped working out for 3-4 days and took IBP because any lifting caused a lot of pain. Any time bending the elbow causes pain. Now affecting daily activities ( carrying groceries or moving things flairs it up). R [place]. Recent x-rays at [facility]. Hasn't worked out for 6 wks since the holidays and is limited in what he can do to prevent flare up of R elbow, and it hasn't improved . PT usually biannually, but since Covid and Bicep injury, PT test has been put on hold. Pt is R handed. Prior Treatments and Tests X-ray R Elbow taken at [facility]. Ultrasound to R elbow. Ices it, wears compression sock on elbow, IBP, TENS unit . Future Testing and Treatments Planned Referred to Dr. Tobin, orthopedist. MRI planned ~ in 2 weeks, then will see orthopedist. Treatment Goals Patient/Caregiver Goals Pt goal with therapy is to decrease the pain to do PT ( physical training). Must PT 2x/year for [employer] (push ups, run, sit ups). Pt goal is to improve ability to carry grocery into house; housework chores (taking out trash, lifting 20-25#). Prior Functional Status Baseline Function- ADL's Independent Baseline Function- Mobility Independent Baseline Function- Recreation/Hobbies Exercised at gym. Row 65#. Can plate of 45# wgt normally. Current Functional Impairments (Reported) Functional Limitations- ADL's 20-25# lifting causes considerable pain. Unable to do pull ups, carry groceries or lift and move objects. Functional Limitations- Work/School Has not had 2x/year, PT assessment for [employer] (push ups, run, sit ups). Functional Limitations- Recreation/ Exercises except for pulling Hobbies motion at elbow. Has stopped body ex's (able to do lat pull down w/arms pulled in, but not in V-position). Exercises 3-4 days/week but not doing elbow flex ex's. Personal Factors Other Personal Factors That May Effect Depression Therapy/Recovery PT exercising group 3-4 days/ week. PT-OP-C Subjective Start: 11/16/21 18:20 Freq: Status: Active Protocol: Document 11/27/21 14:21 LRN (Rec: 11/27/21 16:37 LRN [id number]) OP-PT Subjective Patient Comments Patient Comments Has used ice and not lifting too much has helped but as soon as he lifts heavy it flares it up again. Has not tried heat to see if helpful for pain managment. PT-OP-H Neuro Start: 11/16/21 18:20 Freq: Status: Active Protocol: Document 11/22/21 14:19 LRN (Rec: 11/22/21 16:25 LRN [id number]) Sensation Evaluation Gross Sensation Gross Sensation WNL Deep Tendon Reflex & Clonus Assessment Deep Tendon Reflex Right Brachioradialis Deep Tendon Reflex 2+ Normal Left Brachioradialis Deep Tendon Reflex 2+ Normal Right Tricep Deep Tendon Reflex 0 Absent Left Tricep Deep Tendon Reflex 0 Absent Right Bicep Deep Tendon Reflex 0 Absent Left Bicep Deep Tendon Reflex 0 Absent PT-OP-J Posture/Palpation/Skin Start: 11/16/21 18:20 Freq: Status: Active Protocol: Document 11/22/21 14:19 LRN (Rec: 11/22/21 16:25 LRN [id number]) Posture Evaluation Position Standing Head/C-Spine Posture Forward Head L-Spine Posture Decreased Lordosis Shoulder Posture (R) Elevated Comments Posture Comments C-curve of spine with apex. Slight fwd head. Palpation Assessment Location R biceps Palpation Location Biceps @ Radius & Brachialis @ Ulna Tendon Palpation Findings Soft Tissue Tightness, Tenderness PT-OP-K Range of Motion Start: 11/16/21 18:20 Freq: Status: Active Protocol: Document 11/22/21 14:19 LRN (Rec: 11/22/21 16:25 LRN [id number]) Elbow/Forearm Range of Motion Elbow/Forearm Right Passive Elbow/Forearm ROM WFL Yes ROM Testing Position Sitting Comments No pain with AROM Left Active Elbow/Forearm ROM WFL Yes ROM Testing Position Sitting PT-OP-M Strength Start: 11/16/21 18:20 Freq: Status: Active Protocol: Document 11/22/21 14:19 LRN (Rec: 11/22/21 16:25 LRN [id number]) Shoulder Strength Shoulder Manual Muscle Testing Right Flexion 5 Normal Extension 5 Normal Abduction (C5) 4 Good Adduction 4 Good External Rotation 4 Good Internal Rotation 4 Good Left Comments Generally 5/5. Elbow/Forearm Strength Elbow and Forearm Manual Muscle Testing Right Flexion (C6) 4 Good Extension (C7) 5 Normal Pronation 4 Good Supination 5 Normal Comments Brachioradialis 5/5 without pain Biceps 4/5 with pain Left Flexion (C6) 5 Normal Extension (C7) 5 Normal Pronation 5 Normal Supination 5 Normal Comments Generally 5/5. Wrist Strength Wrist Manual Muscle Testing Right Comments Generally 5/5 Left Comments Generally 5/5 PT-OP-Q Treatments Start: 11/16/21 18:20 Freq: Status: Active Protocol: Document 11/27/21 14:21 LRN (Rec: 11/27/21 16:37 LRN [id number]) Manual Therapy Treatment Soft Tissue Mobilization R biceps tendon Body Location R biceps tendon at radial tuberosity & bicipital aponeurosis Taping R Elbow Body Location R biceps tendon at elbow Treatment Focus Star to decrease edema, I- strip x 2 to assist with elbow flex due to strain Type of Tape Kinesio Tape Skin Inspection Good Comments Pt I/S in safe & proper removal of tape and wear time of max 5 days. Pt to remove day before next appt for retaping. Nerve Glides Median Nerve Median Details Supine, flossing at elbow with shldr 90 AB, wrist full ext. Body Position Supine Reps/Duration 10x Comments Slow stretch. Extra time for training for max tolerance. Manual Techniques MWM Type MWM Body Location R elbow compression with elbow curl of 2#, 7#, 10# Body Position Supine Reps/Duration 7' Comments Pt needed 10# wgt to get onset of pain, but diminished with compression of R elbow jt with flexion. PT-OP-R Modalities Start: 11/16/21 18:20 Freq: Status: Active Protocol: Document 11/27/21 14:21 LRN (Rec: 11/27/21 16:37 LRN [id number]) Ultrasound Therapy Treatment R Biceps Tendon Treatment Duration (minutes) 8 Patient Position Supine Coupling Medium Ultrasound Gel Applicator Size (cm2) 2 Frequency Setting (mHz) 1 Mode Setting Pulsed Duty Cycle 50% Intensity Setting (w/cm2) 1.0 PT-OP-T Assessment and Plan Start: 11/16/21 18:20 Freq: Status: Active Protocol: Document 11/27/21 14:21 LRN (Rec: 11/27/21 16:37 LRN [id number]) Physical Therapy Assessment Goals One Impairment Lacks appropriate self care HEP Impairment Posture: R shoulder elevated & C-curve of spine with apex on the left. Short Term Goal (STG) Pt will be educated R elbow edema & pain management. PT will be educated in proper posture (correct R shoulder elevation and spinal C-curve) STG Duration 11/22/21 (11/22/21: MET GOAL ) Assessment Summary Assessment Pt has mild median & ulnar n. tension. Ultrasound had mild effect on R biceps tendon pain with palpation. Physical Therapy Plan Frequency and Duration Frequency of Treatment 2x/Week Duration of Treatment 12 treatment visits Plan of Care Start Date 11/22/21 Plan of Care End Date 02/22/22 Next Visit Focus/Plan Next Note Type Treatment Note Next Visit Plan Check response to K-tape for biceps relaxation from star and facilitation taping. Check pain with cervical compression and Spurlings Test . Ultrasound to R biceps tendon, f/b R shoulder strengthening review, Add scapular depression and trunk L SB stretch; R wrist and light elbow strengthening, End with Iontophoresis if POC signed by referring physician End with CP if needed.
--- NOTE | 2021-11-29 17:09 | PT.OTN ---
Current Diagnoses Muscle weakness (generalized) (11/29/21) Bicipital tendinitis, unspecified shoulder (11/29/21) Bicipital tendinitis, right shoulder (11/29/21) Physical Therapy Treatment Note PT-OP-A Visit Information Start: 11/16/21 18:20 Freq: Status: Active Protocol: Document 11/29/21 14:18 LRN (Rec: 11/29/21 15:09 LRN [id number]) Out-Patient Physical Therapy Visit Information Visit Information Visit Type Treatment Note Visit Start Time 14:18 Visit Stop Time 15:08 Total Visit Minutes 50 Visit Number 3 Evaluation Information Evaluation Date 11/22/21 Precautions Precautions Medication controlled depression. Dislocated R shoulder x 2 ( 2019) doing pull ups. PT-OP-B Current Condition Start: 11/16/21 18:20 Freq: Status: Active Protocol: Document 11/22/21 14:19 LRN (Rec: 11/22/21 16:25 LRN [id number]) Current Condition History of Current Condition Onset Date 6 months ago Current Complaints Pain with flexing of the R arm that dissapates over time. History of Current Condition Was doing pull ups and noticed a sharp pain on inside of elbow. Stopped working out for 3-4 days and took IBP because any lifting caused a lot of pain. Any time bending the elbow causes pain. Now affecting daily activities ( carrying groceries or moving things flairs it up). R inner [place] pain[place]. Recent x-rays at [facility]. Hasn't worked out for 6 wks since the holidays and is limited in what he can do to prevent flare up of R elbow, and it hasn't improved . PT usually biannually, but since Covid and Bicep injury, PT test has been put on hold. Pt is R handed. Prior Treatments and Tests X-ray R Elbow taken at [facility]. Ultrasound to R elbow. Ices it, wears compression sock on elbow, IBP, TENS unit . Future Testing and Treatments Planned Referred to Dr. Tobin, orthopedist. MRI planned ~ in 2 weeks, then will see orthopedist. Treatment Goals Patient/Caregiver Goals Pt goal with therapy is to decrease the pain to do PT ( physical training). Must PT 2x/year for [employer] (push ups, run, sit ups). Pt goal is to improve ability to carry grocery into house; housework chores (taking out trash, lifting 20-25#). Prior Functional Status Baseline Function- ADL's Independent Baseline Function- Mobility Independent Baseline Function- Recreation/Hobbies Exercised at gym. Row 65#. Can plate of 45# wgt normally. Current Functional Impairments (Reported) Functional Limitations- ADL's 20-25# lifting causes considerable pain. Unable to do pull ups, carry groceries or lift and move objects. Functional Limitations- Work/School Has not had 2x/year, PT assessment for [employer] (push ups, run, sit ups). Functional Limitations- Recreation/ Exercises except for pulling Hobbies motion at elbow. Has stopped body ex's (able to do lat pull down w/arms pulled in, but not in V-position). Exercises 3-4 days/week but not doing elbow flex ex's. Personal Factors Other Personal Factors That May Effect Depression Therapy/Recovery PT exercising group 3-4 days/ week. PT-OP-C Subjective Start: 11/16/21 18:20 Freq: Status: Active Protocol: Document 11/29/21 14:18 LRN (Rec: 11/29/21 15:09 LRN [id number]) OP-PT Subjective Patient Comments Patient Comments States the tape helped, but found it difficult to remove. States he has sensitive skin. PT-OP-H Neuro Start: 11/16/21 18:20 Freq: Status: Active Protocol: Document 11/22/21 14:19 LRN (Rec: 11/22/21 16:25 LRN [id number]) Sensation Evaluation Gross Sensation Gross Sensation WNL Deep Tendon Reflex & Clonus Assessment Deep Tendon Reflex Right Brachioradialis Deep Tendon Reflex 2+ Normal Left Brachioradialis Deep Tendon Reflex 2+ Normal Right Tricep Deep Tendon Reflex 0 Absent Left Tricep Deep Tendon Reflex 0 Absent Right Bicep Deep Tendon Reflex 0 Absent Left Bicep Deep Tendon Reflex 0 Absent PT-OP-J Posture/Palpation/Skin Start: 11/16/21 18:20 Freq: Status: Active Protocol: Document 11/22/21 14:19 LRN (Rec: 11/22/21 16:25 LRN [id number]) Posture Evaluation Position Standing Head/C-Spine Posture Forward Head L-Spine Posture Decreased Lordosis Shoulder Posture (R) Elevated Comments Posture Comments C-curve of spine with apex. Slight fwd head. Palpation Assessment Location R biceps Palpation Location Biceps @ Radius & Brachialis @ Ulna Tendon Palpation Findings Soft Tissue Tightness, Tenderness PT-OP-K Range of Motion Start: 11/16/21 18:20 Freq: Status: Active Protocol: Document 11/22/21 14:19 LRN (Rec: 11/22/21 16:25 LRN [id number]) Elbow/Forearm Range of Motion Elbow/Forearm Right Passive Elbow/Forearm ROM WFL Yes ROM Testing Position Sitting Comments No pain with AROM Left Active Elbow/Forearm ROM WFL Yes ROM Testing Position Sitting PT-OP-M Strength Start: 11/16/21 18:20 Freq: Status: Active Protocol: Document 11/22/21 14:19 LRN (Rec: 11/22/21 16:25 LRN [id number]) Shoulder Strength Shoulder Manual Muscle Testing Right Flexion 5 Normal Extension 5 Normal Abduction (C5) 4 Good Adduction 4 Good External Rotation 4 Good Internal Rotation 4 Good Left Comments Generally 5/5. Elbow/Forearm Strength Elbow and Forearm Manual Muscle Testing Right Flexion (C6) 4 Good Extension (C7) 5 Normal Pronation 4 Good Supination 5 Normal Comments Brachioradialis 5/5 without pain Biceps 4/5 with pain Left Flexion (C6) 5 Normal Extension (C7) 5 Normal Pronation 5 Normal Supination 5 Normal Comments Generally 5/5. Wrist Strength Wrist Manual Muscle Testing Right Comments Generally 5/5 Left Comments Generally 5/5 PT-OP-Q Treatments Start: 11/16/21 18:20 Freq: Status: Active Protocol: Document 11/29/21 14:18 LRN (Rec: 11/29/21 15:09 LRN [id number]) Therapeutic Exercises Sitting Exercises Shoulder depression Sitting Exercise Name Shoulder depression Side bilateral Reps/Minutes 15x Wrist ext Sitting Exercise Name Wrist Ext Side right Equipment Used 2# Reps/Minutes 15x Wrist flex Sitting Exercise Name Wrist flex Side right Equipment Used 2# Reps/Minutes 15x Standing Exercises L Trunk SB stretch Standing Exercise Name Trunk SB stretch to R side Side right Reps/Minutes 3' Elbow curls Standing Exercise Name Elbow curls palm: sup/pron/ neutral Side right Equipment Used 1# Reps/Minutes 10x each Comments Pain with hand in sup & neutral Self-Care/Home Management Treatment Education Other Education Educated pt in safe and proper removal of K-tape and demonstrated removal. Reinforced that pt should take extra precautions to monitor skin under tape for allergic reactions and to remove in discomfort, redness, itching. Pt told to remove in 4 days or less. PT-OP-R Modalities Start: 11/16/21 18:20 Freq: Status: Active Protocol: Document 11/29/21 14:18 LRN (Rec: 11/29/21 15:09 LRN [id number]) Ultrasound Therapy Treatment R Biceps Tendon Treatment Duration (minutes) 8 Patient Position Supine Coupling Medium Ultrasound Gel Applicator Size (cm2) 2 Frequency Setting (mHz) 1 Mode Setting Pulsed Duty Cycle 50% Intensity Setting (w/cm2) 1.0 PT-OP-T Assessment and Plan Start: 11/16/21 18:20 Freq: Status: Active Protocol: Document 11/29/21 14:18 LRN (Rec: 11/29/21 15:09 LRN [id number]) Physical Therapy Assessment Goals Three Impairment Pain 6/10 with bending of elbow activities Impairment Pain that lingers for days when using R elbow flexors. Pain limiting function per UE Quickdash score of 31 (20-39% impaired, score 20-39) Short Term Goal (STG) Pt will be able to lift light weights groceries, with R UE with pain no greater than 3/10 . STG Duration 01/08/22 Snf Goal (LTG) Pt will be able to return to prior level of function of Physical Training, using R arm (20-25#) with intermittent mild to no R biceps pain. LTG Duration 02/22/22 Two Impairment Decreased R elbow/shoulder strength Impairment R shoulder: AB, AD, ER, IR is 4/5 (Flex/Ext is 5/5). R elbow: flex/pronation is 4/ 5. Short Term Goal (STG) Pt will be educated in progressive R shoulder/elbow strengthening, scapular depression, & Trunk L SB stretch ex. STG Duration 01/08/22 Snf Goal (LTG) Pt will demonstrate improved R elbow strength to 4+/5 to 5/5 , with ability to carry groceries into house or do housework chores (taking out trash, lifting 20-25#) with minimal to no pain. LTG Duration 02/22/22 One Impairment Lacks appropriate self care HEP Impairment Posture: R shoulder elevated & C-curve of spine with apex on the left. Short Term Goal (STG) Pt will be educated R elbow edema & pain management. PT will be educated in proper posture (correct R shoulder elevation and spinal C-curve) STG Duration 11/22/21 (11/22/21: MET GOAL ) Bag[employer]ager Goal (LTG) Pt will be independent in a self care HEP of R shoulder/ elbow strengthening ex's. LTG Duration 02/22/22 Assessment Summary Assessment Pt had redness with K-tape; therefore tried today Malox to skin before application. No change in R UE pain with compression or Spurlings Test; therefore probably not cervical involvment. Pt may have UE tension along with his R trunk stiffness from historical dislocation of R shoulder. Physical Therapy Plan Frequency and Duration Frequency of Treatment 2x/Week Duration of Treatment 12 treatment visits Plan of Care Start Date 11/22/21 Plan of Care End Date 02/22/22 Next Visit Focus/Plan Next Note Type Treatment Note Next Visit Plan Check K-tape response. Ultrasound to R biceps tendon, R shoulder strengthening review, Review I/S scapular depression and trunk L SB stretch; Assess response to R wrist and light elbow strengthening, Add UE neural stretch if needed. End with Iontophoresis if POC signed by referring physician End with CP if needed.
--- NOTE | 2021-12-04 16:45 | PT.OTN ---
Current Diagnoses Muscle weakness (generalized) (12/04/21) Bicipital tendinitis, unspecified shoulder (12/04/21) Bicipital tendinitis, right shoulder (12/04/21) Physical Therapy Treatment Note PT-OP-A Visit Information Start: 11/16/21 18:20 Freq: Status: Active Protocol: Document 12/04/21 14:15 LRN (Rec: 12/04/21 16:44 LRN [id number]) Out-Patient Physical Therapy Visit Information Visit Information Visit Type Treatment Note Visit Start Time 14:15 Visit Stop Time 15:04 Total Visit Minutes 49 Visit Number 4 Evaluation Information Evaluation Date 11/22/21 Precautions Precautions Medication controlled depression. Dislocated R shoulder x 2 ( 2019) doing pull ups. PT-OP-B Current Condition Start: 11/16/21 18:20 Freq: Status: Active Protocol: Document 11/22/21 14:19 LRN (Rec: 11/22/21 16:25 LRN [id number]) Current Condition History of Current Condition Onset Date 6 months ago Current Complaints Pain with flexing of the R arm that dissapates over time. History of Current Condition Was doing pull ups and noticed a sharp pain on inside of elbow. Stopped working out for 3-4 days and took IBP because any lifting caused a lot of pain. Any time bending the elbow causes pain. Now affecting daily activities ( carrying groceries or moving things flairs it up). R [place]. Recent x-rays at [facility]. Hasn't worked out for 6 wks since the holidays and is limited in what he can do to prevent flare up of R elbow, and it hasn't improved . PT usually biannually, but since Covid and Bicep injury, PT test has been put on hold. Pt is R handed. Prior Treatments and Tests X-ray R Elbow taken at [facility]. Ultrasound to R elbow. Ices it, wears compression sock on elbow, IBP, TENS unit . Future Testing and Treatments Planned Referred to Dr. Toibn, orthopedist. MRI planned ~ in 2 weeks, then will see orthopedist. Treatment Goals Patient/Caregiver Goals Pt goal with therapy is to decrease the pain to do PT ( physical training). Must PT 2x/year for [employer] (push ups, run, sit ups). Pt goal is to improve ability to carry grocery into house; housework chores (taking out trash, lifting 20-25#). Prior Functional Status Baseline Function- ADL's Independent Baseline Function- Mobility Independent Baseline Function- Recreation/Hobbies Exercised at gym. Row 65#. Can plate of 45# wgt normally. Current Functional Impairments (Reported) Functional Limitations- ADL's 20-25# lifting causes considerable pain. Unable to do pull ups, carry groceries or lift and move objects. Functional Limitations- Work/School Has not had 2x/year, PT assessment for [employer] (push ups, run, sit ups). Functional Limitations- Recreation/ Exercises except for pulling Hobbies motion at elbow. Has stopped body ex's (able to do lat pull down w/arms pulled in, but not in V-position). Exercises 3-4 days/week but not doing elbow flex ex's. Personal Factors Other Personal Factors That May Effect Depression Therapy/Recovery PT exercising group 3-4 days/ week. PT-OP-C Subjective Start: 11/16/21 18:20 Freq: Status: Active Protocol: Document 12/04/21 14:15 LRN (Rec: 12/04/21 16:44 LRN [id number]) OP-PT Subjective Patient Comments Patient Comments Today didn't notice any pain. Took off 2 days ago. Can straighten arm without pain. PT-OP-H Neuro Start: 11/16/21 18:20 Freq: Status: Active Protocol: Document 11/22/21 14:19 LRN (Rec: 11/22/21 16:25 LRN [id number]) Sensation Evaluation Gross Sensation Gross Sensation WNL Deep Tendon Reflex & Clonus Assessment Deep Tendon Reflex Right Brachioradialis Deep Tendon Reflex 2+ Normal Left Brachioradialis Deep Tendon Reflex 2+ Normal Right Tricep Deep Tendon Reflex 0 Absent Left Tricep Deep Tendon Reflex 0 Absent Right Bicep Deep Tendon Reflex 0 Absent Left Bicep Deep Tendon Reflex 0 Absent PT-OP-J Posture/Palpation/Skin Start: 11/16/21 18:20 Freq: Status: Active Protocol: Document 11/22/21 14:19 LRN (Rec: 11/22/21 16:25 LRN [id number]) Posture Evaluation Position Standing Head/C-Spine Posture Forward Head L-Spine Posture Decreased Lordosis Shoulder Posture (R) Elevated Comments Posture Comments C-curve of spine with apex. Slight fwd head. Palpation Assessment Location R biceps Palpation Location Biceps @ Radius & Brachialis @ Ulna Tendon Palpation Findings Soft Tissue Tightness, Tenderness PT-OP-K Range of Motion Start: 11/16/21 18:20 Freq: Status: Active Protocol: Document 11/22/21 14:19 LRN (Rec: 11/22/21 16:25 LRN [id number]) Elbow/Forearm Range of Motion Elbow/Forearm Right Passive Elbow/Forearm ROM WFL Yes ROM Testing Position Sitting Comments No pain with AROM Left Active Elbow/Forearm ROM WFL Yes ROM Testing Position Sitting PT-OP-M Strength Start: 11/16/21 18:20 Freq: Status: Active Protocol: Document 11/22/21 14:19 LRN (Rec: 11/22/21 16:25 LRN [id number]) Shoulder Strength Shoulder Manual Muscle Testing Right Flexion 5 Normal Extension 5 Normal Abduction (C5) 4 Good Adduction 4 Good External Rotation 4 Good Internal Rotation 4 Good Left Comments Generally 5/5. Elbow/Forearm Strength Elbow and Forearm Manual Muscle Testing Right Flexion (C6) 4 Good Extension (C7) 5 Normal Pronation 4 Good Supination 5 Normal Comments Brachioradialis 5/5 without pain Biceps 4/5 with pain Left Flexion (C6) 5 Normal Extension (C7) 5 Normal Pronation 5 Normal Supination 5 Normal Comments Generally 5/5. Wrist Strength Wrist Manual Muscle Testing Right Comments Generally 5/5 Left Comments Generally 5/5 PT-OP-Q Treatments Start: 11/16/21 18:20 Freq: Status: Active Protocol: Document 12/04/21 14:15 LRN (Rec: 12/04/21 16:44 LRN [id number]) Therapeutic Exercises Sitting Exercises Sup/Pron Sitting Exercise Name Sup/Pron elbow flexed Side right Equipment Used 0#, 1# Reps/Minutes 10x each and with each direction Comments Stopping at neutral with motions. Elbow flexed 45 deg' s UD/RD Sitting Exercise Name UD/RD with arm in flex, dependent, ended 90 flex @ elbow, forearm supported Side right Equipment Used 2#, Lev 2 TB Reps/Minutes 10x x 2 Comments Much adjustments with positioning & lever arm to keep ex in painfree range. Wrist ext Sitting Exercise Name Wrist Ext Side right Equipment Used 2#, 3# Reps/Minutes 10x, 8x respectively Comments Adjustments to positioning & lever arm needed to remain painfree Wrist flex Sitting Exercise Name Wrist flex Side right Equipment Used 2#, 3# Reps/Minutes 15x each Comments Elbow straight, initial adjustments to plinth height for painfree ROM PT-OP-R Modalities Start: 11/16/21 18:20 Freq: Status: Active Protocol: Document 12/04/21 14:15 LRN (Rec: 12/04/21 16:44 LRN [id number]) Ultrasound Therapy Treatment R Biceps Tendon Treatment Duration (minutes) 8 Patient Position Supine Coupling Medium Ultrasound Gel Applicator Size (cm2) 2 Frequency Setting (mHz) 1 Mode Setting Pulsed Duty Cycle 50% Intensity Setting (w/cm2) 1.0 PT-OP-T Assessment and Plan Start: 11/16/21 18:20 Freq: Status: Active Protocol: Document 12/04/21 14:15 LRN (Rec: 12/04/21 16:44 LRN [id number]) Physical Therapy Assessment Goals Three Impairment Pain 6/10 with bending of elbow activities Impairment Pain that lingers for days when using R elbow flexors. Pain limiting function per UE Quickdash score of 31 (20-39% impaired, score 20-39) Short Term Goal (STG) Pt will be able to lift light weights groceries, with R UE with pain no greater than 3/10 . STG Duration 01/08/22 [employer] Goal (LTG) Pt will be able to return to prior level of function of Physical Training, using R arm (20-25#) with intermittent mild to no R biceps pain. LTG Duration 02/22/22 Two Impairment Decreased R elbow/shoulder strength Impairment R shoulder: AB, AD, ER, IR is 4/5 (Flex/Ext is 5/5). R elbow: flex/pronation is 4/ 5. Short Term Goal (STG) Pt will be educated in progressive R shoulder/elbow strengthening, scapular depression, & Trunk L SB stretch ex. STG Duration 01/08/22 Alf Goal (LTG) Pt will demonstrate improved R elbow strength to 4+/5 to 5/5 , with ability to carry groceries into house or do housework chores (taking out trash, lifting 20-25#) with minimal to no pain. LTG Duration 02/22/22 One Impairment Lacks appropriate self care HEP Impairment Posture: R shoulder elevated & C-curve of spine with apex on the left. Short Term Goal (STG) Pt will be educated R elbow edema & pain management. PT will be educated in proper posture (correct R shoulder elevation and spinal C-curve) STG Duration 11/22/21 (11/22/21: MET GOAL ) Alf Goal (LTG) Pt will be independent in a self care HEP of R shoulder/ elbow strengthening ex's. LTG Duration 02/22/22 Progress Towards Goals Progress Towards Goals Slow Progress due to Activity Tolerance Progress Comments Progressed HEP. Assessment Summary Assessment Pt wore tape for 3 days and shows no significant signs of skin irritation. Short on time; therefore no K-taping today. POC not signed; therefore not able to do Iontophoresis. Pt slowly improving and is now able to do R wrist strengthening with 3# and can straighten the arm without pain to start. At end of therapy after US, pt had no complaints of pain on straightening. Pt did have pain complaints with some of the wrist ex when placed in a longer lever arm position. Physical Therapy Plan Frequency and Duration Frequency of Treatment 2x/Week Duration of Treatment 12 treatment visits Plan of Care Start Date 11/22/21 Plan of Care End Date 02/22/22 Next Visit Focus/Plan Next Note Type Treatment Note Next Visit Plan Ultrasound to R biceps tendon, R shoulder strengthening review, Review I/S scapular depression and trunk L SB stretch; Assess response to R wrist and light elbow strengthening, Add UE neural stretch & progress elbow strengthening with a longer lever arm as tolerated. End with Iontophoresis if POC signed by referring physician End with CP if needed.
--- NOTE | 2021-12-04 16:52 | PT.OTN ---
Current Diagnoses Muscle weakness (generalized) (12/04/21) Bicipital tendinitis, unspecified shoulder (12/04/21) Bicipital tendinitis, right shoulder (12/04/21) Physical Therapy Treatment Note PT-OP-A Visit Information Start: 11/16/21 18:20 Freq: Status: Active Protocol: Document 12/04/21 14:15 LRN (Rec: 12/04/21 16:44 LRN [id number]) Out-Patient Physical Therapy Visit Information Visit Information Visit Type Treatment Note Visit Start Time 14:15 Visit Stop Time 15:04 Total Visit Minutes 49 Visit Number 4 Evaluation Information Evaluation Date 11/22/21 Precautions Precautions Medication controlled depression. Dislocated R shoulder x 2 ( 2019) doing pull ups. PT-OP-B Current Condition Start: 11/16/21 18:20 Freq: Status: Active Protocol: Document 11/22/21 14:19 LRN (Rec: 11/22/21 16:25 LRN [id number]) Current Condition History of Current Condition Onset Date 6 months ago Current Complaints Pain with flexing of the R arm that dissapates over time. History of Current Condition Was doing pull ups and noticed a sharp pain on inside of elbow. Stopped working out for 3-4 days and took IBP because any lifting caused a lot of pain. Any time bending the elbow causes pain. Now affecting daily activities ( carrying groceries or moving things flairs it up). R inner [place] pain[place]. Recent x-rays at [facility]. Hasn't worked out for 6 wks since the holidays and is limited in what he can do to prevent flare up of R elbow, and it hasn't improved . PT usually biannually, but since Covid and Bicep injury, PT test has been put on hold. Pt is R handed. Prior Treatments and Tests X-ray R Elbow taken at [facility]. Ultrasound to R elbow. Ices it, wears compression sock on elbow, IBP, TENS unit . Future Testing and Treatments Planned Referred to Dr. Tobin, orthopedist. MRI planned ~ in 2 weeks, then will see orthopedist. Treatment Goals Patient/Caregiver Goals Pt goal with therapy is to decrease the pain to do PT ( physical training). Must PT 2x/year for [employer] (push ups, run, sit ups). Pt goal is to improve ability to carry grocery into house; housework chores (taking out trash, lifting 20-25#). Prior Functional Status Baseline Function- ADL's Independent Baseline Function- Mobility Independent Baseline Function- Recreation/Hobbies Exercised at gym. Row 65#. Can plate of 45# wgt normally. Current Functional Impairments (Reported) Functional Limitations- ADL's 20-25# lifting causes considerable pain. Unable to do pull ups, carry groceries or lift and move objects. Functional Limitations- Work/School Has not had 2x/year, PT assessment for [employer] (push ups, run, sit ups). Functional Limitations- Recreation/ Exercises except for pulling Hobbies motion at elbow. Has stopped body ex's (able to do lat pull down w/arms pulled in, but not in V-position). Exercises 3-4 days/week but not doing elbow flex ex's. Personal Factors Other Personal Factors That May Effect Depression Therapy/Recovery PT exercising group 3-4 days/ week. PT-OP-C Subjective Start: 11/16/21 18:20 Freq: Status: Active Protocol: Document 12/04/21 14:15 LRN (Rec: 12/04/21 16:44 LRN [id number]) OP-PT Subjective Patient Comments Patient Comments Today didn't notice any pain. Took off 2 days ago. Can straighten arm without pain. PT-OP-H Neuro Start: 11/16/21 18:20 Freq: Status: Active Protocol: Document 11/22/21 14:19 LRN (Rec: 11/22/21 16:25 LRN [id number]) Sensation Evaluation Gross Sensation Gross Sensation WNL Deep Tendon Reflex & Clonus Assessment Deep Tendon Reflex Right Brachioradialis Deep Tendon Reflex 2+ Normal Left Brachioradialis Deep Tendon Reflex 2+ Normal Right Tricep Deep Tendon Reflex 0 Absent Left Tricep Deep Tendon Reflex 0 Absent Right Bicep Deep Tendon Reflex 0 Absent Left Bicep Deep Tendon Reflex 0 Absent PT-OP-J Posture/Palpation/Skin Start: 11/16/21 18:20 Freq: Status: Active Protocol: Document 11/22/21 14:19 LRN (Rec: 11/22/21 16:25 LRN [id number]) Posture Evaluation Position Standing Head/C-Spine Posture Forward Head L-Spine Posture Decreased Lordosis Shoulder Posture (R) Elevated Comments Posture Comments C-curve of spine with apex. Slight fwd head. Palpation Assessment Location R biceps Palpation Location Biceps @ Radius & Brachialis @ Ulna Tendon Palpation Findings Soft Tissue Tightness, Tenderness PT-OP-K Range of Motion Start: 11/16/21 18:20 Freq: Status: Active Protocol: Document 11/22/21 14:19 LRN (Rec: 11/22/21 16:25 LRN [id number]) Elbow/Forearm Range of Motion Elbow/Forearm Right Passive Elbow/Forearm ROM WFL Yes ROM Testing Position Sitting Comments No pain with AROM Left Active Elbow/Forearm ROM WFL Yes ROM Testing Position Sitting PT-OP-M Strength Start: 11/16/21 18:20 Freq: Status: Active Protocol: Document 11/22/21 14:19 LRN (Rec: 11/22/21 16:25 LRN [id number]) Shoulder Strength Shoulder Manual Muscle Testing Right Flexion 5 Normal Extension 5 Normal Abduction (C5) 4 Good Adduction 4 Good External Rotation 4 Good Internal Rotation 4 Good Left Comments Generally 5/5. Elbow/Forearm Strength Elbow and Forearm Manual Muscle Testing Right Flexion (C6) 4 Good Extension (C7) 5 Normal Pronation 4 Good Supination 5 Normal Comments Brachioradialis 5/5 without pain Biceps 4/5 with pain Left Flexion (C6) 5 Normal Extension (C7) 5 Normal Pronation 5 Normal Supination 5 Normal Comments Generally 5/5. Wrist Strength Wrist Manual Muscle Testing Right Comments Generally 5/5 Left Comments Generally 5/5 PT-OP-Q Treatments Start: 11/16/21 18:20 Freq: Status: Active Protocol: Document 12/04/21 14:15 LRN (Rec: 12/04/21 16:44 LRN [id number]) Therapeutic Exercises Sitting Exercises Sup/Pron Sitting Exercise Name Sup/Pron elbow flexed Side right Equipment Used 0#, 1# Reps/Minutes 10x each and with each direction Comments Stopping at neutral with motions. Elbow flexed 45 deg' s UD/RD Sitting Exercise Name UD/RD with arm in flex, dependent, ended 90 flex @ elbow, forearm supported Side right Equipment Used 2#, Lev 2 TB Reps/Minutes 10x x 2 Comments Much adjustments with positioning & lever arm to keep ex in painfree range. Wrist ext Sitting Exercise Name Wrist Ext Side right Equipment Used 2#, 3# Reps/Minutes 10x, 8x respectively Comments Adjustments to positioning & lever arm needed to remain painfree Wrist flex Sitting Exercise Name Wrist flex Side right Equipment Used 2#, 3# Reps/Minutes 15x each Comments Elbow straight, initial adjustments to plinth height for painfree ROM Manual Therapy Treatment Taping R Elbow Body Location R biceps tendon at elbow Treatment Focus I-strip to assist with elbow flex due to strain Type of Tape Kinesio Tape Skin Inspection Good Comments Pt I/S in safe & proper removal of tape day before next appt. Milk of Magnesia on skin before taping PT-OP-R Modalities Start: 11/16/21 18:20 Freq: Status: Active Protocol: Document 12/04/21 14:15 LRN (Rec: 12/04/21 16:44 LRN [id number]) Ultrasound Therapy Treatment R Biceps Tendon Treatment Duration (minutes) 8 Patient Position Supine Coupling Medium Ultrasound Gel Applicator Size (cm2) 2 Frequency Setting (mHz) 1 Mode Setting Pulsed Duty Cycle 50% Intensity Setting (w/cm2) 1.0 PT-OP-T Assessment and Plan Start: 11/16/21 18:20 Freq: Status: Active Protocol: Document 12/04/21 14:15 LRN (Rec: 12/04/21 16:44 LRN [id number]) Physical Therapy Assessment Goals Three Impairment Pain 6/10 with bending of elbow activities Impairment Pain that lingers for days when using R elbow flexors. Pain limiting function per UE Quickdash score of 31 (20-39% impaired, score 20-39) Short Term Goal (STG) Pt will be able to lift light weights groceries, with R UE with pain no greater than 3/10 . STG Duration 01/08/22 [employer] Goal (LTG) Pt will be able to return to prior level of function of Physical Training, using R arm (20-25#) with intermittent mild to no R biceps pain. LTG Duration 02/22/22 Two Impairment Decreased R elbow/shoulder strength Impairment R shoulder: AB, AD, ER, IR is 4/5 (Flex/Ext is 5/5). R elbow: flex/pronation is 4/ 5. Short Term Goal (STG) Pt will be educated in progressive R shoulder/elbow strengthening, scapular depression, & Trunk L SB stretch ex. STG Duration 01/08/22 Half[place] Goal (LTG) Pt will demonstrate improved R elbow strength to 4+/5 to 5/5 , with ability to carry groceries into house or do housework chores (taking out trash, lifting 20-25#) with minimal to no pain. LTG Duration 02/22/22 One Impairment Lacks appropriate self care HEP Impairment Posture: R shoulder elevated & C-curve of spine with apex on the left. Short Term Goal (STG) Pt will be educated R elbow edema & pain management. PT will be educated in proper posture (correct R shoulder elevation and spinal C-curve) STG Duration 11/22/21 (11/22/21: MET GOAL ) Halfway Goal (LTG) Pt will be independent in a self care HEP of R shoulder/ elbow strengthening ex's. LTG Duration 02/22/22 Progress Towards Goals Progress Towards Goals Slow Progress due to Activity Tolerance Progress Comments Progressed HEP. Assessment Summary Assessment Pt wore tape for 3 days and shows no significant signs of skin irritation. Short on time; therefore no K-taping today. POC not signed; therefore not able to do Iontophoresis. Pt slowly improving and is now able to do R wrist strengthening with 3# and can straighten the arm without pain to start. At end of therapy after US, pt had no complaints of pain on straightening. Pt did have pain complaints with some of the wrist ex when placed in a longer lever arm position. Physical Therapy Plan Frequency and Duration Frequency of Treatment 2x/Week Duration of Treatment 12 treatment visits Plan of Care Start Date 11/22/21 Plan of Care End Date 02/22/22 Next Visit Focus/Plan Next Note Type Treatment Note Next Visit Plan Ultrasound to R biceps tendon, R shoulder strengthening review, Review I/S scapular depression and trunk L SB stretch; Assess response to R wrist and light elbow strengthening, Add UE neural stretch & progress elbow strengthening with a longer lever arm as tolerated. End with Iontophoresis if POC signed by referring physician End with CP if needed.
--- NOTE | 2021-12-04 17:25 | PT.OTN ---
Current Diagnoses Muscle weakness (generalized) (12/04/21) Bicipital tendinitis, unspecified shoulder (12/04/21) Bicipital tendinitis, right shoulder (12/04/21) Physical Therapy Treatment Note PT-OP-A Visit Information Start: 11/16/21 18:20 Freq: Status: Active Protocol: Document 12/04/21 14:15 LRN (Rec: 12/04/21 16:44 LRN [id number]) Out-Patient Physical Therapy Visit Information Visit Information Visit Type Treatment Note Visit Start Time 14:15 Visit Stop Time 15:04 Total Visit Minutes 49 Visit Number 4 Evaluation Information Evaluation Date 11/22/21 Precautions Precautions Medication controlled depression. Dislocated R shoulder x 2 ( 2019) doing pull ups. PT-OP-B Current Condition Start: 11/16/21 18:20 Freq: Status: Active Protocol: Document 11/22/21 14:19 LRN (Rec: 11/22/21 16:25 LRN [id number]) Current Condition History of Current Condition Onset Date 6 months ago Current Complaints Pain with flexing of the R arm that dissapates over time. History of Current Condition Was doing pull ups and noticed a sharp pain on inside of elbow. Stopped working out for 3-4 days and took IBP because any lifting caused a lot of pain. Any time bending the elbow causes pain. Now affecting daily activities ( carrying groceries or moving things flairs it up). R [place]. Recent x-rays at [facility]. Hasn't worked out for 6 wks since the holidays and is limited in what he can do to prevent flare up of R elbow, and it hasn't improved . PT usually biannually, but since Covid and Bicep injury, PT test has been put on hold. Pt is R handed. Prior Treatments and Tests X-ray R Elbow taken at [facility]. Ultrasound to R elbow. Ices it, wears compression sock on elbow, IBP, TENS unit . Future Testing and Treatments Planned Referred to Dr. Tobin, orthopedist. MRI planned ~ in 2 weeks, then will see orthopedist. Treatment Goals Patient/Caregiver Goals Pt goal with therapy is to decrease the pain to do PT ( physical training). Must PT 2x/year for [employer] (push ups, run, sit ups). Pt goal is to improve ability to carry grocery into house; housework chores (taking out trash, lifting 20-25#). Prior Functional Status Baseline Function- ADL's Independent Baseline Function- Mobility Independent Baseline Function- Recreation/Hobbies Exercised at gym. Row 65#. Can plate of 45# wgt normally. Current Functional Impairments (Reported) Functional Limitations- ADL's 20-25# lifting causes considerable pain. Unable to do pull ups, carry groceries or lift and move objects. Functional Limitations- Work/School Has not had 2x/year, PT assessment for [employer] (push ups, run, sit ups). Functional Limitations- Recreation/ Exercises except for pulling Hobbies motion at elbow. Has stopped body ex's (able to do lat pull down w/arms pulled in, but not in V-position). Exercises 3-4 days/week but not doing elbow flex ex's. Personal Factors Other Personal Factors That May Effect Depression Therapy/Recovery PT exercising group 3-4 days/ week. PT-OP-C Subjective Start: 11/16/21 18:20 Freq: Status: Active Protocol: Document 12/04/21 14:15 LRN (Rec: 12/04/21 16:44 LRN [id number]) OP-PT Subjective Patient Comments Patient Comments Today didn't notice any pain. Took off 2 days ago. Can straighten arm without pain. PT-OP-H Neuro Start: 11/16/21 18:20 Freq: Status: Active Protocol: Document 11/22/21 14:19 LRN (Rec: 11/22/21 16:25 LRN [id number]) Sensation Evaluation Gross Sensation Gross Sensation WNL Deep Tendon Reflex & Clonus Assessment Deep Tendon Reflex Right Brachioradialis Deep Tendon Reflex 2+ Normal Left Brachioradialis Deep Tendon Reflex 2+ Normal Right Tricep Deep Tendon Reflex 0 Absent Left Tricep Deep Tendon Reflex 0 Absent Right Bicep Deep Tendon Reflex 0 Absent Left Bicep Deep Tendon Reflex 0 Absent PT-OP-J Posture/Palpation/Skin Start: 11/16/21 18:20 Freq: Status: Active Protocol: Document 11/22/21 14:19 LRN (Rec: 11/22/21 16:25 LRN [id number]) Posture Evaluation Position Standing Head/C-Spine Posture Forward Head L-Spine Posture Decreased Lordosis Shoulder Posture (R) Elevated Comments Posture Comments C-curve of spine with apex. Slight fwd head. Palpation Assessment Location R biceps Palpation Location Biceps @ Radius & Brachialis @ Ulna Tendon Palpation Findings Soft Tissue Tightness, Tenderness PT-OP-K Range of Motion Start: 11/16/21 18:20 Freq: Status: Active Protocol: Document 11/22/21 14:19 LRN (Rec: 11/22/21 16:25 LRN [id number]) Elbow/Forearm Range of Motion Elbow/Forearm Right Passive Elbow/Forearm ROM WFL Yes ROM Testing Position Sitting Comments No pain with AROM Left Active Elbow/Forearm ROM WFL Yes ROM Testing Position Sitting PT-OP-M Strength Start: 11/16/21 18:20 Freq: Status: Active Protocol: Document 11/22/21 14:19 LRN (Rec: 11/22/21 16:25 LRN [id number]) Shoulder Strength Shoulder Manual Muscle Testing Right Flexion 5 Normal Extension 5 Normal Abduction (C5) 4 Good Adduction 4 Good External Rotation 4 Good Internal Rotation 4 Good Left Comments Generally 5/5. Elbow/Forearm Strength Elbow and Forearm Manual Muscle Testing Right Flexion (C6) 4 Good Extension (C7) 5 Normal Pronation 4 Good Supination 5 Normal Comments Brachioradialis 5/5 without pain Biceps 4/5 with pain Left Flexion (C6) 5 Normal Extension (C7) 5 Normal Pronation 5 Normal Supination 5 Normal Comments Generally 5/5. Wrist Strength Wrist Manual Muscle Testing Right Comments Generally 5/5 Left Comments Generally 5/5 PT-OP-Q Treatments Start: 11/16/21 18:20 Freq: Status: Active Protocol: Document 12/04/21 14:15 LRN (Rec: 12/04/21 16:44 LRN [id number]) Therapeutic Exercises Sitting Exercises Sup/Pron Sitting Exercise Name Sup/Pron elbow flexed Side right Equipment Used 0#, 1# Reps/Minutes 10x each and with each direction Comments Stopping at neutral with motions. Elbow flexed 45 deg' s UD/RD Sitting Exercise Name UD/RD with arm in flex, dependent, ended 90 flex @ elbow, forearm supported Side right Equipment Used 2#, Lev 2 TB Reps/Minutes 10x x 2 Comments Much adjustments with positioning & lever arm to keep ex in painfree range. Wrist ext Sitting Exercise Name Wrist Ext Side right Equipment Used 2#, 3# Reps/Minutes 10x, 8x respectively Comments Adjustments to positioning & lever arm needed to remain painfree Wrist flex Sitting Exercise Name Wrist flex Side right Equipment Used 2#, 3# Reps/Minutes 15x each Comments Elbow straight, initial adjustments to plinth height for painfree ROM Manual Therapy Treatment Taping R Elbow Body Location R biceps tendon at elbow Treatment Focus I-strip to assist with elbow flex due to strain Type of Tape Kinesio Tape Skin Inspection Good Comments Pt I/S in safe & proper removal of tape day before next appt. Milk of Magnesia on skin before taping Self-Care/Home Management Treatment Education Patient Education Home Exercise Program Activities Self-Care/Home Management Activities Issued & reviewed HEP: Wrist strengthening for TBand flex/ ext/UD/RD and with weight UD/ RD PT-OP-R Modalities Start: 11/16/21 18:20 Freq: Status: Active Protocol: Document 12/04/21 14:15 LRN (Rec: 12/04/21 16:44 LRN [id number]) Ultrasound Therapy Treatment R Biceps Tendon Treatment Duration (minutes) 8 Patient Position Supine Coupling Medium Ultrasound Gel Applicator Size (cm2) 2 Frequency Setting (mHz) 1 Mode Setting Pulsed Duty Cycle 50% Intensity Setting (w/cm2) 1.0 PT-OP-T Assessment and Plan Start: 11/16/21 18:20 Freq: Status: Active Protocol: Document 12/04/21 14:15 LRN (Rec: 12/04/21 16:44 LRN [id number]) Physical Therapy Assessment Goals Three Impairment Pain 6/10 with bending of elbow activities Impairment Pain that lingers for days when using R elbow flexors. Pain limiting function per UE Quickdash score of 31 (20-39% impaired, score 20-39) Short Term Goal (STG) Pt will be able to lift light weights groceries, with R UE with pain no greater than 3/10 . STG Duration 01/08/22 Intermediate Goal (LTG) Pt will be able to return to prior level of function of Physical Training, using R arm (20-25#) with intermittent mild to no R biceps pain. LTG Duration 02/22/22 Two Impairment Decreased R elbow/shoulder strength Impairment R shoulder: AB, AD, ER, IR is 4/5 (Flex/Ext is 5/5). R elbow: flex/pronation is 4/ 5. Short Term Goal (STG) Pt will be educated in progressive R shoulder/elbow strengthening, scapular depression, & Trunk L SB stretch ex. STG Duration 01/08/22 [employer] Goal (LTG) Pt will demonstrate improved R elbow strength to 4+/5 to 5/5 , with ability to carry groceries into house or do housework chores (taking out trash, lifting 20-25#) with minimal to no pain. LTG Duration 02/22/22 One Impairment Lacks appropriate self care HEP Impairment Posture: R shoulder elevated & C-curve of spine with apex on the left. Short Term Goal (STG) Pt will be educated R elbow edema & pain management. PT will be educated in proper posture (correct R shoulder elevation and spinal C-curve) STG Duration 11/22/21 (11/22/21: MET GOAL ) Intermediate Goal (LTG) Pt will be independent in a self care HEP of R shoulder/ elbow strengthening ex's. LTG Duration 02/22/22 Progress Towards Goals Progress Towards Goals Slow Progress due to Activity Tolerance Progress Comments Progressed HEP. Assessment Summary Assessment Pt wore tape for 3 days and shows no significant signs of skin irritation. Short on time; therefore no K-taping today. POC not signed; therefore not able to do Iontophoresis. Pt slowly improving and is now able to do R wrist strengthening with 3# and can straighten the arm without pain to start. At end of therapy after US, pt had no complaints of pain on straightening. Pt did have pain complaints with some of the wrist ex when placed in a longer lever arm position. Physical Therapy Plan Frequency and Duration Frequency of Treatment 2x/Week Duration of Treatment 12 treatment visits Plan of Care Start Date 11/22/21 Plan of Care End Date 02/22/22 Next Visit Focus/Plan Next Note Type Treatment Note Next Visit Plan Ultrasound to R biceps tendon, R shoulder strengthening review, Review I/S scapular depression and trunk L SB stretch; Assess response to R wrist and light elbow strengthening, Add UE neural stretch & progress elbow strengthening with a longer lever arm as tolerated. End with Iontophoresis if POC signed by referring physician End with CP if needed.
--- NOTE | 2021-12-07 15:33 | PT.OTN ---
Current Diagnoses Muscle weakness (generalized) (12/07/21) Bicipital tendinitis, unspecified shoulder (12/07/21) Bicipital tendinitis, right shoulder (12/07/21) Physical Therapy Treatment Note PT-OP-A Visit Information Start: 11/16/21 18:20 Freq: Status: Active Protocol: Document 12/07/21 14:17 LRN (Rec: 12/07/21 15:32 LRN [id number]) Out-Patient Physical Therapy Visit Information Visit Information Visit Type Treatment Note Visit Start Time 14:17 Visit Stop Time 15:09 Total Visit Minutes 42 Visit Number 5 Evaluation Information Evaluation Date 11/22/21 Precautions Precautions Medication controlled depression. Dislocated R shoulder x 2 ( 2019) doing pull ups. PT-OP-B Current Condition Start: 11/16/21 18:20 Freq: Status: Active Protocol: Document 11/22/21 14:19 LRN (Rec: 11/22/21 16:25 LRN [id number]) Current Condition History of Current Condition Onset Date 6 months ago Current Complaints Pain with flexing of the R arm that dissapates over time. History of Current Condition Was doing pull ups and noticed a sharp pain on inside of elbow. Stopped working out for 3-4 days and took IBP because any lifting caused a lot of pain. Any time bending the elbow causes pain. Now affecting daily activities ( carrying groceries or moving things flairs it up). R inner [place] pain[place]. Recent x-rays at [facility]. Hasn't worked out for 6 wks since the holidays and is limited in what he can do to prevent flare up of R elbow, and it hasn't improved . PT usually biannually, but since Covid and Bicep injury, PT test has been put on hold. Pt is R handed. Prior Treatments and Tests X-ray R Elbow taken at [facility]. Ultrasound to R elbow. Ices it, wears compression sock on elbow, IBP, TENS unit . Future Testing and Treatments Planned Referred to Dr. Tobin, orthopedist. MRI planned ~ in 2 weeks, then will see orthopedist. Treatment Goals Patient/Caregiver Goals Pt goal with therapy is to decrease the pain to do PT ( physical training). Must PT 2x/year for [employer] (push ups, run, sit ups). Pt goal is to improve ability to carry grocery into house; housework chores (taking out trash, lifting 20-25#). Prior Functional Status Baseline Function- ADL's Independent Baseline Function- Mobility Independent Baseline Function- Recreation/Hobbies Exercised at gym. Row 65#. Can plate of 45# wgt normally. Current Functional Impairments (Reported) Functional Limitations- ADL's 20-25# lifting causes considerable pain. Unable to do pull ups, carry groceries or lift and move objects. Functional Limitations- Work/School Has not had 2x/year, PT assessment for [employer] (push ups, run, sit ups). Functional Limitations- Recreation/ Exercises except for pulling Hobbies motion at elbow. Has stopped body ex's (able to do lat pull down w/arms pulled in, but not in V-position). Exercises 3-4 days/week but not doing elbow flex ex's. Personal Factors Other Personal Factors That May Effect Depression Therapy/Recovery PT exercising group 3-4 days/ week. PT-OP-C Subjective Start: 11/16/21 18:20 Freq: Status: Active Protocol: Document 12/07/21 14:17 LRN (Rec: 12/07/21 15:32 LRN [id number]) OP-PT Subjective Patient Comments Patient Comments States he took the K-tape of without difficulty or much redness. No pain with R elbow /wrist flex/ext or and minor tension with pronation. PT-OP-H Neuro Start: 11/16/21 18:20 Freq: Status: Active Protocol: Document 11/22/21 14:19 LRN (Rec: 11/22/21 16:25 LRN [id number]) Sensation Evaluation Gross Sensation Gross Sensation WNL Deep Tendon Reflex & Clonus Assessment Deep Tendon Reflex Right Brachioradialis Deep Tendon Reflex 2+ Normal Left Brachioradialis Deep Tendon Reflex 2+ Normal Right Tricep Deep Tendon Reflex 0 Absent Left Tricep Deep Tendon Reflex 0 Absent Right Bicep Deep Tendon Reflex 0 Absent Left Bicep Deep Tendon Reflex 0 Absent PT-OP-J Posture/Palpation/Skin Start: 11/16/21 18:20 Freq: Status: Active Protocol: Document 11/22/21 14:19 LRN (Rec: 11/22/21 16:25 LRN [id number]) Posture Evaluation Position Standing Head/C-Spine Posture Forward Head L-Spine Posture Decreased Lordosis Shoulder Posture (R) Elevated Comments Posture Comments C-curve of spine with apex. Slight fwd head. Palpation Assessment Location R biceps Palpation Location Biceps @ Radius & Brachialis @ Ulna Tendon Palpation Findings Soft Tissue Tightness, Tenderness PT-OP-K Range of Motion Start: 11/16/21 18:20 Freq: Status: Active Protocol: Document 11/22/21 14:19 LRN (Rec: 11/22/21 16:25 LRN [id number]) Elbow/Forearm Range of Motion Elbow/Forearm Right Passive Elbow/Forearm ROM WFL Yes ROM Testing Position Sitting Comments No pain with AROM Left Active Elbow/Forearm ROM WFL Yes ROM Testing Position Sitting PT-OP-M Strength Start: 11/16/21 18:20 Freq: Status: Active Protocol: Document 11/22/21 14:19 LRN (Rec: 11/22/21 16:25 LRN [id number]) Shoulder Strength Shoulder Manual Muscle Testing Right Flexion 5 Normal Extension 5 Normal Abduction (C5) 4 Good Adduction 4 Good External Rotation 4 Good Internal Rotation 4 Good Left Comments Generally 5/5. Elbow/Forearm Strength Elbow and Forearm Manual Muscle Testing Right Flexion (C6) 4 Good Extension (C7) 5 Normal Pronation 4 Good Supination 5 Normal Comments Brachioradialis 5/5 without pain Biceps 4/5 with pain Left Flexion (C6) 5 Normal Extension (C7) 5 Normal Pronation 5 Normal Supination 5 Normal Comments Generally 5/5. Wrist Strength Wrist Manual Muscle Testing Right Comments Generally 5/5 Left Comments Generally 5/5 PT-OP-Q Treatments Start: 11/16/21 18:20 Freq: Status: Active Protocol: Document 12/07/21 14:17 LRN (Rec: 12/07/21 15:32 LRN [id number]) Therapeutic Exercises Sitting Exercises Sup/Pron Sitting Exercise Name Sup/Pron elbow flexed Side right Equipment Used 2#, Lev 3 TB Reps/Minutes 2 sets each: 8-10x each and with each direction Comments Stopping at neutral with motions. Elbow flexed 45 deg' s UD/RD Sitting Exercise Name UD/RD with arm in flex, dependent, ended 30 flex @ elbow, forearm supported Side right Equipment Used 3#, Lev 3 TB Reps/Minutes 2 sets each: 8-10x (max [address]) Comments Much adjustments with positioning & lever arm to keep ex in painfree range. Wrist ext Sitting Exercise Name Wrist Ext Side right Equipment Used 3# & Lev 3 TB x 2 Reps/Minutes 2 sets each: 8x respectively Comments Adjustments to positioning & lever arm needed to remain painfree Wrist flex Sitting Exercise Name Wrist flex Side right Equipment Used 2#, 3# Reps/Minutes 2 sets each: 8x each Comments Elbow straight, initial adjustments to plinth height for painfree ROM Standing Exercises Chest press Standing Exercise Name Chest press Side bilateral Equipment Used L2 Reps/Minutes 10x Shoulder ext Standing Exercise Name Shoulder ext Side bilateral Equipment Used Lev 2 Reps/Minutes 10x Elbow ext Standing Exercise Name Elbow strengthening Side bilateral Equipment Used Lev 2 Reps/Minutes 10x Elbow curls Standing Exercise Name Elbow Curls Side right Reps/Minutes 2# Comments 2 sets each: 8-10x Manual Therapy Treatment Taping R Elbow Body Location R biceps tendon at elbow Treatment Focus I-strip to assist for biceps relaxation/edema at bicep attachment Type of Tape Kinesio Tape Skin Inspection Good Comments I-strip from Bicipital groove to wrist with arm in full extension. Pt I/S in safe & proper removal of tape day before next appt. Milk of Magnesia on skin before taping PT-OP-R Modalities Start: 11/16/21 18:20 Freq: Status: Active Protocol: Document 12/07/21 14:17 LRN (Rec: 12/07/21 15:32 LRN [id number]) Ultrasound Therapy Treatment R Biceps Tendon Treatment Duration (minutes) 8 Patient Position Supine Coupling Medium Ultrasound Gel Applicator Size (cm2) 2 Frequency Setting (mHz) 1 Mode Setting Pulsed Duty Cycle 50% Intensity Setting (w/cm2) 1.0 PT-OP-T Assessment and Plan Start: 11/16/21 18:20 Freq: Status: Active Protocol: Document 12/07/21 14:17 LRN (Rec: 12/07/21 15:32 LRN [id number]) Physical Therapy Assessment Goals Three Impairment Pain 6/10 with bending of elbow activities Impairment Pain that lingers for days when using R elbow flexors. Pain limiting function per UE Quickdash score of 31 (20-39% impaired, score 20-39) Short Term Goal (STG) Pt will be able to lift light weights groceries, with R UE with pain no greater than 3/10 . STG Duration 01/08/22 Custodial Goal (LTG) Pt will be able to return to prior level of function of Physical Training, using R arm (20-25#) with intermittent mild to no R biceps pain. LTG Duration 02/22/22 Two Impairment Decreased R elbow/shoulder strength Impairment R shoulder: AB, AD, ER, IR is 4/5 (Flex/Ext is 5/5). R elbow: flex/pronation is 4/ 5. Short Term Goal (STG) Pt will be educated in progressive R shoulder/elbow strengthening, scapular depression, & Trunk L SB stretch ex. STG Duration 01/08/22 [employer] Goal (LTG) Pt will demonstrate improved R elbow strength to 4+/5 to 5/5 , with ability to carry groceries into house or do housework chores (taking out trash, lifting 20-25#) with minimal to no pain. LTG Duration 02/22/22 One Impairment Lacks appropriate self care HEP Impairment Posture: R shoulder elevated & C-curve of spine with apex on the left. Short Term Goal (STG) Pt will be educated R elbow edema & pain management. PT will be educated in proper posture (correct R shoulder elevation and spinal C-curve) STG Duration 11/22/21 (11/22/21: MET GOAL ) [employer] Goal (LTG) Pt will be independent in a self care HEP of R shoulder/ elbow strengthening ex's. LTG Duration 02/22/22 Progress Towards Goals Progress Comments Pt able to straighten R arm without pain. Pt able to perform biceps curl with 2# with dependent arm wtihout pain. Assessment Summary Assessment Fair tolerance to light R UE strengthening. Pt had pain post workout with R arm Row w/ 25#. He appears to have a good understanding of motions of ex for R elbow/wrist stengthening. Pt has pain with full pronation of R forearm and less tolerance with strengthening compared to other muscle groups. S/P K- tape pt showed greater tolerance to strengthening with light weights. Physical Therapy Plan Frequency and Duration Frequency of Treatment 2x/Week Duration of Treatment 12 treatment visits Plan of Care Start Date 11/22/21 Plan of Care End Date 02/22/22 Next Visit Focus/Plan Next Note Type Treatment Note Next Visit Plan Cont US, stretch (pron, elbow ext), and elbow/wrist/shoulder strengthening to R biceps tendon. Next tx: HEP: R shoulder strengthening review (scapular depression), and trunk L SB stretch; Add HEP: progressive R shoulder/elbow strengthening. Add isometric holding training (holding groceries). Add UE neural stretch & progress elbow strengthening with a longer lever arm as tolerated. End with Iontophoresis if POC signed by referring physician, End with CP if needed.
--- NOTE | 2021-12-11 16:13 | PT.OTN ---
Current Diagnoses Muscle weakness (generalized) (12/11/21) Bicipital tendinitis, unspecified shoulder (12/11/21) Bicipital tendinitis, right shoulder (12/11/21) Physical Therapy Treatment Note PT-OP-A Visit Information Start: 11/16/21 18:20 Freq: Status: Active Protocol: Document 12/11/21 14:21 LRN (Rec: 12/11/21 15:05 LRN [id number]) Out-Patient Physical Therapy Visit Information Visit Information Visit Type Treatment Note Visit Start Time 14:21 Visit Stop Time 14:59 Total Visit Minutes 38 Visit Number 6 Evaluation Information Evaluation Date 11/22/21 Precautions Precautions Medication controlled depression. Dislocated R shoulder x 2 ( 2019) doing pull ups. PT-OP-B Current Condition Start: 11/16/21 18:20 Freq: Status: Active Protocol: Document 11/22/21 14:19 LRN (Rec: 11/22/21 16:25 LRN [id number]) Current Condition History of Current Condition Onset Date 6 months ago Current Complaints Pain with flexing of the R arm that dissapates over time. History of Current Condition Was doing pull ups and noticed a sharp pain on inside of elbow. Stopped working out for 3-4 days and took IBP because any lifting caused a lot of pain. Any time bending the elbow causes pain. Now affecting daily activities ( carrying groceries or moving things flairs it up). R [place]. Recent x-rays at [facility]. Hasn't worked out for 6 wks since the holidays and is limited in what he can do to prevent flare up of R elbow, and it hasn't improved . PT usually biannually, but since Covid and Bicep injury, PT test has been put on hold. Pt is R handed. Prior Treatments and Tests X-ray R Elbow taken at [facility]. Ultrasound to R elbow. Ices it, wears compression sock on elbow, IBP, TENS unit . Future Testing and Treatments Planned Referred to Dr. Tobin, orthopedist. MRI planned ~ in 2 weeks, then will see orthopedist. Treatment Goals Patient/Caregiver Goals Pt goal with therapy is to decrease the pain to do PT ( physical training). Must PT 2x/year for [employer] (push ups, run, sit ups). Pt goal is to improve ability to carry grocery into house; housework chores (taking out trash, lifting 20-25#). Prior Functional Status Baseline Function- ADL's Independent Baseline Function- Mobility Independent Baseline Function- Recreation/Hobbies Exercised at gym. Row 65#. Can plate of 45# wgt normally. Current Functional Impairments (Reported) Functional Limitations- ADL's 20-25# lifting causes considerable pain. Unable to do pull ups, carry groceries or lift and move objects. Functional Limitations- Work/School Has not had 2x/year, PT assessment for [employer] (push ups, run, sit ups). Functional Limitations- Recreation/ Exercises except for pulling Hobbies motion at elbow. Has stopped body ex's (able to do lat pull down w/arms pulled in, but not in V-position). Exercises 3-4 days/week but not doing elbow flex ex's. Personal Factors Other Personal Factors That May Effect Depression Therapy/Recovery PT exercising group 3-4 days/ week. PT-OP-C Subjective Start: 11/16/21 18:20 Freq: Status: Active Protocol: Document 12/11/21 14:21 LRN (Rec: 12/11/21 15:05 LRN [id number]) OP-PT Subjective Patient Comments Patient Comments States his R elbow is getting better. DAy to day life doesn 't notice it as much. Not the pain in the arm as much, but has been keeping his elbow in and changed the way he has been doing things. PT-OP-H Neuro Start: 11/16/21 18:20 Freq: Status: Active Protocol: Document 11/22/21 14:19 LRN (Rec: 11/22/21 16:25 LRN [id number]) Sensation Evaluation Gross Sensation Gross Sensation WNL Deep Tendon Reflex & Clonus Assessment Deep Tendon Reflex Right Brachioradialis Deep Tendon Reflex 2+ Normal Left Brachioradialis Deep Tendon Reflex 2+ Normal Right Tricep Deep Tendon Reflex 0 Absent Left Tricep Deep Tendon Reflex 0 Absent Right Bicep Deep Tendon Reflex 0 Absent Left Bicep Deep Tendon Reflex 0 Absent PT-OP-J Posture/Palpation/Skin Start: 11/16/21 18:20 Freq: Status: Active Protocol: Document 11/22/21 14:19 LRN (Rec: 11/22/21 16:25 LRN [id number]) Posture Evaluation Position Standing Head/C-Spine Posture Forward Head L-Spine Posture Decreased Lordosis Shoulder Posture (R) Elevated Comments Posture Comments C-curve of spine with apex. Slight fwd head. Palpation Assessment Location R biceps Palpation Location Biceps @ Radius & Brachialis @ Ulna Tendon Palpation Findings Soft Tissue Tightness, Tenderness PT-OP-K Range of Motion Start: 11/16/21 18:20 Freq: Status: Active Protocol: Document 11/22/21 14:19 LRN (Rec: 11/22/21 16:25 LRN [id number]) Elbow/Forearm Range of Motion Elbow/Forearm Right Passive Elbow/Forearm ROM WFL Yes ROM Testing Position Sitting Comments No pain with AROM Left Active Elbow/Forearm ROM WFL Yes ROM Testing Position Sitting PT-OP-M Strength Start: 11/16/21 18:20 Freq: Status: Active Protocol: Document 11/22/21 14:19 LRN (Rec: 11/22/21 16:25 LRN [id number]) Shoulder Strength Shoulder Manual Muscle Testing Right Flexion 5 Normal Extension 5 Normal Abduction (C5) 4 Good Adduction 4 Good External Rotation 4 Good Internal Rotation 4 Good Left Comments Generally 5/5. Elbow/Forearm Strength Elbow and Forearm Manual Muscle Testing Right Flexion (C6) 4 Good Extension (C7) 5 Normal Pronation 4 Good Supination 5 Normal Comments Brachioradialis 5/5 without pain Biceps 4/5 with pain Left Flexion (C6) 5 Normal Extension (C7) 5 Normal Pronation 5 Normal Supination 5 Normal Comments Generally 5/5. Wrist Strength Wrist Manual Muscle Testing Right Comments Generally 5/5 Left Comments Generally 5/5 PT-OP-Q Treatments Start: 11/16/21 18:20 Freq: Status: Active Protocol: Document 12/11/21 14:21 LRN (Rec: 12/11/21 15:05 LRN [id number]) Therapeutic Exercises Sitting Exercises Sup/Pron Sitting Exercise Name Sup/Pron elbow flexed Side right Equipment Used 4#, 3# Reps/Minutes 2 sets each: 8-10x each and with each direction Comments Stopping at neutral with motions. Elbow flexed 45 deg' s UD/RD Sitting Exercise Name UD/RD with arm in flex, dependent, ended 30 flex @ elbow, forearm supported Side right Equipment Used 4#, 3# Reps/Minutes 15x 1 each Comments Much adjustments with positioning & lever arm to keep ex in painfree range. Wrist ext Sitting Exercise Name Wrist Ext Side right Equipment Used 4#, 3# Reps/Minutes 15x each Comments Adjustments to positioning & lever arm needed to remain painfree Wrist flex Sitting Exercise Name Wrist flex Side right Equipment Used 4#, 3# Reps/Minutes 15x & 10x respectively Comments Elbow straight, initial adjustments to plinth height for painfree ROM Standing Exercises Shoulder press Side bilateral Equipment Used 3# R, 4# L Reps/Minutes 10x each Comments No pain Alternate arm lifts Side bilateral Equipment Used 3# R, 4# L Reps/Minutes 10x each Comments No pain Manual Therapy Treatment Taping R Elbow Body Location R biceps tendon at elbow Treatment Focus I-strip to assist for biceps relaxation/edema at bicep attachment Type of Tape Kinesio Tape Skin Inspection Good Comments I-strip from Bicipital groove to wrist with arm in full extension. Pt I/S in safe & proper removal of tape day before next appt. Milk of Magnesia on skin before taping PT-OP-R Modalities Start: 11/16/21 18:20 Freq: Status: Active Protocol: Document 12/11/21 14:21 LRN (Rec: 12/11/21 15:05 LRN [id number]) Ultrasound Therapy Treatment R Biceps Tendon Treatment Duration (minutes) 8 Patient Position Supine Coupling Medium Ultrasound Gel Applicator Size (cm2) 2 Frequency Setting (mHz) 1 Mode Setting Pulsed Duty Cycle 50% Intensity Setting (w/cm2) 1.0 PT-OP-T Assessment and Plan Start: 11/16/21 18:20 Freq: Status: Active Protocol: Document 12/11/21 14:21 LRN (Rec: 12/11/21 15:05 LRN [id number]) Physical Therapy Assessment Goals Three Impairment Pain 6/10 with bending of elbow activities Impairment Pain that lingers for days when using R elbow flexors. Pain limiting function per UE Quickdash score of 31 (20-39% impaired, score 20-39) Short Term Goal (STG) Pt will be able to lift light weights groceries, with R UE with pain no greater than 3/10 . STG Duration 01/08/22 Jail Goal (LTG) Pt will be able to return to prior level of function of Physical Training, using R arm (20-25#) with intermittent mild to no R biceps pain. LTG Duration 02/22/22 Two Impairment Decreased R elbow/shoulder strength Impairment R shoulder: AB, AD, ER, IR is 4/5 (Flex/Ext is 5/5). R elbow: flex/pronation is 4/ 5. Short Term Goal (STG) Pt will be educated in progressive R shoulder/elbow strengthening, scapular depression, & Trunk L SB stretch ex. STG Duration 01/08/22 Dead Mail Checker Goal (LTG) Pt will demonstrate improved R elbow strength to 4+/5 to 5/5 , with ability to carry groceries into house or do housework chores (taking out trash, lifting 20-25#) with minimal to no pain. LTG Duration 02/22/22 One Impairment Lacks appropriate self care HEP Impairment Posture: R shoulder elevated & C-curve of spine with apex on the left. Short Term Goal (STG) Pt will be educated R elbow edema & pain management. PT will be educated in proper posture (correct R shoulder elevation and spinal C-curve) STG Duration 11/22/21 (11/22/21: MET GOAL ) Dead Mail Checker Goal (LTG) Pt will be independent in a self care HEP of R shoulder/ elbow strengthening ex's. LTG Duration 02/22/22 Assessment Summary Assessment Progressing, tolerating full elbow ext for shoulder flex and shoulder press without c/o R elbow pain. Pt shows increased tolerance to wrist strengthening. Pt may be able to start elbow strengthening. Pt use of K-tape shows no signs of skin irritation with use of Milk of Magnesia on skin before use of K-tape. Physical Therapy Plan Frequency and Duration Frequency of Treatment 2x/Week Duration of Treatment 12 treatment visits Plan of Care Start Date 11/22/21 Plan of Care End Date 02/22/22 Next Visit Focus/Plan Next Note Type Treatment Note Next Visit Plan Cont US, stretch (add/review pron, elbow ext), and elbow/ wrist/shoulder strengthening to R biceps tendon. Next tx: HEP: R shoulder strengthening review (scapular depression), and trunk L SB stretch; Add isometric holding training (holding groceries). Add HEP: progressive R shoulder/elbow strengthening. Check for need of UE neural stretch End with Iontophoresis if POC signed by referring physician, End with CP if needed.
--- NOTE | 2021-12-13 15:34 | PT.OTN ---
Current Diagnoses Muscle weakness (generalized) (12/13/21) Bicipital tendinitis, unspecified shoulder (12/13/21) Bicipital tendinitis, right shoulder (12/13/21) Physical Therapy Treatment Note PT-OP-A Visit Information Start: 11/16/21 18:20 Freq: Status: Active Protocol: Document 12/13/21 14:35 LRN (Rec: 12/13/21 15:33 LRN [id number]) Out-Patient Physical Therapy Visit Information Visit Information Visit Type Treatment Note Visit Start Time 14:35 Visit Stop Time 15:13 Total Visit Minutes 38 Visit Number 7 Evaluation Information Evaluation Date 11/22/21 Precautions Precautions Medication controlled depression. Dislocated R shoulder x 2 ( 2019) doing pull ups. PT-OP-B Current Condition Start: 11/16/21 18:20 Freq: Status: Active Protocol: Document 11/22/21 14:19 LRN (Rec: 11/22/21 16:25 LRN [id number]) Current Condition History of Current Condition Onset Date 6 months ago Current Complaints Pain with flexing of the R arm that dissapates over time. History of Current Condition Was doing pull ups and noticed a sharp pain on inside of elbow. Stopped working out for 3-4 days and took IBP because any lifting caused a lot of pain. Any time bending the elbow causes pain. Now affecting daily activities ( carrying groceries or moving things flairs it up). R inner [place] pain[place]. Recent x-rays at [facility]. Hasn't worked out for 6 wks since the holidays and is limited in what he can do to prevent flare up of R elbow, and it hasn't improved . PT usually biannually, but since Covid and Bicep injury, PT test has been put on hold. Pt is R handed. Prior Treatments and Tests X-ray R Elbow taken at [facility]. Ultrasound to R elbow. Ices it, wears compression sock on elbow, IBP, TENS unit . Future Testing and Treatments Planned Referred to Dr. Tobin, orthopedist. MRI planned ~ in 2 weeks, then will see orthopedist. Treatment Goals Patient/Caregiver Goals Pt goal with therapy is to decrease the pain to do PT ( physical training). Must PT 2x/year for [employer] (push ups, run, sit ups). Pt goal is to improve ability to carry grocery into house; housework chores (taking out trash, lifting 20-25#). Prior Functional Status Baseline Function- ADL's Independent Baseline Function- Mobility Independent Baseline Function- Recreation/Hobbies Exercised at gym. Row 65#. Can plate of 45# wgt normally. Current Functional Impairments (Reported) Functional Limitations- ADL's 20-25# lifting causes considerable pain. Unable to do pull ups, carry groceries or lift and move objects. Functional Limitations- Work/School Has not had 2x/year, PT assessment for [employer] (push ups, run, sit ups). Functional Limitations- Recreation/ Exercises except for pulling Hobbies motion at elbow. Has stopped body ex's (able to do lat pull down w/arms pulled in, but not in V-position). Exercises 3-4 days/week but not doing elbow flex ex's. Personal Factors Other Personal Factors That May Effect Depression Therapy/Recovery PT exercising group 3-4 days/ week. PT-OP-C Subjective Start: 11/16/21 18:20 Freq: Status: Active Protocol: Document 12/13/21 14:35 LRN (Rec: 12/13/21 15:33 LRN [id number]) OP-PT Subjective Patient Comments Patient Comments Feels he is getting better. Last weight he used to row was 20#. Initially was able to do a 25-30# biceps curl in reclined position. PT-OP-H Neuro Start: 11/16/21 18:20 Freq: Status: Active Protocol: Document 11/22/21 14:19 LRN (Rec: 11/22/21 16:25 LRN [id number]) Sensation Evaluation Gross Sensation Gross Sensation WNL Deep Tendon Reflex & Clonus Assessment Deep Tendon Reflex Right Brachioradialis Deep Tendon Reflex 2+ Normal Left Brachioradialis Deep Tendon Reflex 2+ Normal Right Tricep Deep Tendon Reflex 0 Absent Left Tricep Deep Tendon Reflex 0 Absent Right Bicep Deep Tendon Reflex 0 Absent Left Bicep Deep Tendon Reflex 0 Absent PT-OP-J Posture/Palpation/Skin Start: 11/16/21 18:20 Freq: Status: Active Protocol: Document 11/22/21 14:19 LRN (Rec: 11/22/21 16:25 LRN [id number]) Posture Evaluation Position Standing Head/C-Spine Posture Forward Head L-Spine Posture Decreased Lordosis Shoulder Posture (R) Elevated Comments Posture Comments C-curve of spine with apex. Slight fwd head. Palpation Assessment Location R biceps Palpation Location Biceps @ Radius & Brachialis @ Ulna Tendon Palpation Findings Soft Tissue Tightness, Tenderness PT-OP-K Range of Motion Start: 11/16/21 18:20 Freq: Status: Active Protocol: Document 11/22/21 14:19 LRN (Rec: 11/22/21 16:25 LRN [id number]) Elbow/Forearm Range of Motion Elbow/Forearm Right Passive Elbow/Forearm ROM WFL Yes ROM Testing Position Sitting Comments No pain with AROM Left Active Elbow/Forearm ROM WFL Yes ROM Testing Position Sitting PT-OP-M Strength Start: 11/16/21 18:20 Freq: Status: Active Protocol: Document 11/22/21 14:19 LRN (Rec: 11/22/21 16:25 LRN [id number]) Shoulder Strength Shoulder Manual Muscle Testing Right Flexion 5 Normal Extension 5 Normal Abduction (C5) 4 Good Adduction 4 Good External Rotation 4 Good Internal Rotation 4 Good Left Comments Generally 5/5. Elbow/Forearm Strength Elbow and Forearm Manual Muscle Testing Right Flexion (C6) 4 Good Extension (C7) 5 Normal Pronation 4 Good Supination 5 Normal Comments Brachioradialis 5/5 without pain Biceps 4/5 with pain Left Flexion (C6) 5 Normal Extension (C7) 5 Normal Pronation 5 Normal Supination 5 Normal Comments Generally 5/5. Wrist Strength Wrist Manual Muscle Testing Right Comments Generally 5/5 Left Comments Generally 5/5 PT-OP-Q Treatments Start: 11/16/21 18:20 Freq: Status: Active Protocol: Document 12/13/21 14:35 LRN (Rec: 12/13/21 15:33 LRN [id number]) Gym Equipment Cable Column (Body Solid) Row Details Standing R arm Row Resistance 20#, 22.5# Reps/Time 10x & 3x respectively. Therapeutic Exercises Sitting Exercises Biceps curl Sitting Exercise Name Biceps Curl Equipment Used 5#, 6#, 4# Reps/Minutes 10x each Comments Elbow in full ext, arm resting on table top Sup/Pron Sitting Exercise Name Sup/Pron elbow flexed Side right Equipment Used 5#, 4#, 3# Reps/Minutes 1 sets each: 8-10x each and with each direction Comments Stopping at neutral with motions. Elbow flexed 45 deg' s UD/RD Sitting Exercise Name UD/RD with arm in flex, dependent, ended 30 flex @ elbow, forearm supported Side right Equipment Used 5#, 4#, 3# Reps/Minutes 10x 1 each Comments Much adjustments with positioning & lever arm to keep ex in painfree range. Wrist ext Sitting Exercise Name Wrist Ext Side right Equipment Used 6#, 5#, 4# Reps/Minutes 10x each Comments Elbow flexed Wrist flex Sitting Exercise Name Wrist flex Side right Equipment Used 6#, 5#, 4# Reps/Minutes 10x each Comments Elbow flexed PT-OP-R Modalities Start: 11/16/21 18:20 Freq: Status: Active Protocol: Document 12/11/21 14:21 LRN (Rec: 12/11/21 15:05 LRN [id number]) Ultrasound Therapy Treatment R Biceps Tendon Treatment Duration (minutes) 8 Patient Position Supine Coupling Medium Ultrasound Gel Applicator Size (cm2) 2 Frequency Setting (mHz) 1 Mode Setting Pulsed Duty Cycle 50% Intensity Setting (w/cm2) 1.0 PT-OP-T Assessment and Plan Start: 11/16/21 18:20 Freq: Status: Active Protocol: Document 12/13/21 14:35 LRN (Rec: 12/13/21 15:33 LRN [id number]) Physical Therapy Assessment Goals Three Impairment Pain 6/10 with bending of elbow activities Impairment Pain that lingers for days when using R elbow flexors. Pain limiting function per UE Quickdash score of 31 (20-39% impaired, score 20-39) Short Term Goal (STG) Pt will be able to lift light weights groceries, with R UE with pain no greater than 3/10 . (12/13/21: Row ex with 20# without pain). STG Duration 01/08/22 Fern Picker Goal (LTG) Pt will be able to return to prior level of function of Physical Training, using R arm (20-25#) with intermittent mild to no R biceps pain. LTG Duration 02/22/22 Two Impairment Decreased R elbow/shoulder strength Impairment R shoulder: AB, AD, ER, IR is 4/5 (Flex/Ext is 5/5). R elbow: flex/pronation is 4/ 5. Short Term Goal (STG) Pt will be educated in progressive R shoulder/elbow strengthening, scapular depression, & Trunk L SB stretch ex. (12/13/21: Pt I/S in progression of bicep strengthening for slow add STG Duration 01/08/22 Fern Picker Goal (LTG) Pt will demonstrate improved R elbow strength to 4+/5 to 5/5 , with ability to carry groceries into house or do housework chores (taking out trash, lifting 20-25#) with minimal to no pain. LTG Duration 02/22/22 One Impairment Lacks appropriate self care HEP Impairment Posture: R shoulder elevated & C-curve of spine with apex on the left. Short Term Goal (STG) Pt will be educated R elbow edema & pain management. PT will be educated in proper posture (correct R shoulder elevation and spinal C-curve) STG Duration 11/22/21 (11/22/21: MET GOAL ) Jail Goal (LTG) Pt will be independent in a self care HEP of R shoulder/ elbow strengthening ex's. (12/13/21: Progressed self care of progressive strengthening of Biceps at his local gym, increasing weights in 1-2.5# increments) LTG Duration 02/22/22 (12/13/21: Progressed Progress Towards Goals Progress Comments Pt able to perform R arm row with 20# without biceps pain. I/S pt in progression of biceps strengthening of rows on self care program at gym. Assessment Summary Assessment Pt progressing in tolerance to resistance on Biceps. Today able to do 20# Biceps curl, and advancing wrist strengthening without onset of biceps pain. Pt able to straighten the R arm without pain; therefore K-tape doesn't appear to be needed. Will assess for need of Iontophoresis when POC signed. Physical Therapy Plan Frequency and Duration Frequency of Treatment 2x/Week Duration of Treatment 12 treatment visits Plan of Care Start Date 11/22/21 Plan of Care End Date 02/22/22 Next Visit Focus/Plan Next Note Type Treatment Note Next Visit Plan Cont strengthening of R biceps /wrist, US with positional extension stretch. Next tx: Assess progression to grocery carrying. HEP: R shoulder strengthening review (scapular depression), and trunk L SB stretch ( addressing STG #2); Add HEP: progressive R shoulder/elbow strengthening. Add elbow ext and shoulder strengthening for load on R biceps tendon. Add isometric holding training (holding groceries). Check for need of UE neural stretch End with Iontophoresis (if needed) when POC signed by referring physician, CP if needed.
--- NOTE | 2021-12-20 17:52 | PT.OTN ---
Current Diagnoses Muscle weakness (generalized) (12/20/21) Bicipital tendinitis, unspecified shoulder (12/20/21) Bicipital tendinitis, right shoulder (12/20/21) Physical Therapy Treatment Note PT-OP-A Visit Information Start: 11/16/21 18:20 Freq: Status: Active Protocol: Document 12/20/21 14:35 LRN (Rec: 12/20/21 15:19 LRN [id number]) Out-Patient Physical Therapy Visit Information Visit Information Visit Type Treatment Note Visit Note Plan of care signed. Visit Start Time 14:35 Visit Stop Time 15:17 Total Visit Minutes 42 Visit Number 8 Evaluation Information Evaluation Date 11/22/21 Precautions Precautions Medication controlled depression. Dislocated R shoulder x 2 ( 2019) doing pull ups. PT-OP-B Current Condition Start: 11/16/21 18:20 Freq: Status: Active Protocol: Document 11/22/21 14:19 LRN (Rec: 11/22/21 16:25 LRN [id number]) Current Condition History of Current Condition Onset Date 6 months ago Current Complaints Pain with flexing of the R arm that dissapates over time. History of Current Condition Was doing pull ups and noticed a sharp pain on inside of elbow. Stopped working out for 3-4 days and took IBP because any lifting caused a lot of pain. Any time bending the elbow causes pain. Now affecting daily activities ( carrying groceries or moving things flairs it up). R [place]. Recent x-rays at [facility]. Hasn't worked out for 6 wks since the holidays and is limited in what he can do to prevent flare up of R elbow, and it hasn't improved . PT usually biannually, but since Covid and Bicep injury, PT test has been put on hold. Pt is R handed. Prior Treatments and Tests X-ray R Elbow taken at [facility]. Ultrasound to R elbow. Ices it, wears compression sock on elbow, IBP, TENS unit . Future Testing and Treatments Planned Referred to Dr. Tobin, orthopedist. MRI planned ~ in 2 weeks, then will see orthopedist. Treatment Goals Patient/Caregiver Goals Pt goal with therapy is to decrease the pain to do PT ( physical training). Must PT 2x/year for [employer] (push ups, run, sit ups). Pt goal is to improve ability to carry grocery into house; housework chores (taking out trash, lifting 20-25#). Prior Functional Status Baseline Function- ADL's Independent Baseline Function- Mobility Independent Baseline Function- Recreation/Hobbies Exercised at gym. Row 65#. Can plate of 45# wgt normally. Current Functional Impairments (Reported) Functional Limitations- ADL's 20-25# lifting causes considerable pain. Unable to do pull ups, carry groceries or lift and move objects. Functional Limitations- Work/School Has not had 2x/year, PT assessment for [employer] (push ups, run, sit ups). Functional Limitations- Recreation/ Exercises except for pulling Hobbies motion at elbow. Has stopped body ex's (able to do lat pull down w/arms pulled in, but not in V-position). Exercises 3-4 days/week but not doing elbow flex ex's. Personal Factors Other Personal Factors That May Effect Depression Therapy/Recovery PT exercising group 3-4 days/ week. PT-OP-C Subjective Start: 11/16/21 18:20 Freq: Status: Active Protocol: Document 12/20/21 14:35 LRN (Rec: 12/20/21 15:19 LRN [id number]) OP-PT Subjective Patient Comments Patient Comments Hasn't noticed any pain. Hasn 't exercised. PT-OP-H Neuro Start: 11/16/21 18:20 Freq: Status: Active Protocol: Document 11/22/21 14:19 LRN (Rec: 11/22/21 16:25 LRN [id number]) Sensation Evaluation Gross Sensation Gross Sensation WNL Deep Tendon Reflex & Clonus Assessment Deep Tendon Reflex Right Brachioradialis Deep Tendon Reflex 2+ Normal Left Brachioradialis Deep Tendon Reflex 2+ Normal Right Tricep Deep Tendon Reflex 0 Absent Left Tricep Deep Tendon Reflex 0 Absent Right Bicep Deep Tendon Reflex 0 Absent Left Bicep Deep Tendon Reflex 0 Absent PT-OP-J Posture/Palpation/Skin Start: 11/16/21 18:20 Freq: Status: Active Protocol: Document 11/22/21 14:19 LRN (Rec: 11/22/21 16:25 LRN [id number]) Posture Evaluation Position Standing Head/C-Spine Posture Forward Head L-Spine Posture Decreased Lordosis Shoulder Posture (R) Elevated Comments Posture Comments C-curve of spine with apex. Slight fwd head. Palpation Assessment Location R biceps Palpation Location Biceps @ Radius & Brachialis @ Ulna Tendon Palpation Findings Soft Tissue Tightness, Tenderness PT-OP-K Range of Motion Start: 11/16/21 18:20 Freq: Status: Active Protocol: Document 11/22/21 14:19 LRN (Rec: 11/22/21 16:25 LRN [id number]) Elbow/Forearm Range of Motion Elbow/Forearm Right Passive Elbow/Forearm ROM WFL Yes ROM Testing Position Sitting Comments No pain with AROM Left Active Elbow/Forearm ROM WFL Yes ROM Testing Position Sitting PT-OP-M Strength Start: 11/16/21 18:20 Freq: Status: Active Protocol: Document 11/22/21 14:19 LRN (Rec: 11/22/21 16:25 LRN [id number]) Shoulder Strength Shoulder Manual Muscle Testing Right Flexion 5 Normal Extension 5 Normal Abduction (C5) 4 Good Adduction 4 Good External Rotation 4 Good Internal Rotation 4 Good Left Comments Generally 5/5. Elbow/Forearm Strength Elbow and Forearm Manual Muscle Testing Right Flexion (C6) 4 Good Extension (C7) 5 Normal Pronation 4 Good Supination 5 Normal Comments Brachioradialis 5/5 without pain Biceps 4/5 with pain Left Flexion (C6) 5 Normal Extension (C7) 5 Normal Pronation 5 Normal Supination 5 Normal Comments Generally 5/5. Wrist Strength Wrist Manual Muscle Testing Right Comments Generally 5/5 Left Comments Generally 5/5 PT-OP-Q Treatments Start: 11/16/21 18:20 Freq: Status: Active Protocol: Document 12/20/21 14:35 LRN (Rec: 12/20/21 15:19 LRN [id number]) Cardio Equipment Recumbent Stepper (Sci-Fit) Duration (Minutes) 4 Resistance 1 Seat Position 9 Therapeutic Exercises Sitting Exercises Biceps curl Sitting Exercise Name Biceps Curl (arm in sup, pron, neutral Side right Equipment Used 5#, 6# Reps/Minutes 10x each Comments Elbow in full ext, arm resting on table top Sup/Pron Sitting Exercise Name Sup/Pron elbow flexed Side right Equipment Used 5#, 6# Reps/Minutes 1 sets each: 8-10x each and with each direction Comments Stopping at neutral with motions. Elbow flexed 45 deg' s UD/RD Sitting Exercise Name UD/RD with arm in flex, dependent, ended 30 flex @ elbow, forearm supported Side right Equipment Used 5#, 7# Reps/Minutes 10x 1 each Comments Much adjustments with positioning & lever arm to keep ex in painfree range. Wrist ext Sitting Exercise Name Wrist Ext Side right Equipment Used 5#, 7# Reps/Minutes 10x each Comments Elbow flexed Wrist flex Sitting Exercise Name Wrist flex Side right Equipment Used 5#, 7# Reps/Minutes 10x each Comments Elbow flexed Standing Exercises Shoulder press Side bilateral Equipment Used 10# , 7# Reps/Minutes 10x each Comments No pain Elbow ext Standing Exercise Name Elbow Ext Side bilateral Equipment Used Lev 3 Reps/Minutes 10x L Trunk SB stretch Standing Exercise Name Trunk SB stretch to R side Side right Reps/Minutes 3' Elbow curls Standing Exercise Name Bent over rows Side right Reps/Minutes 7#, 10#, 20# Comments 2 sets each: 8-10x PT-OP-R Modalities Start: 11/16/21 18:20 Freq: Status: Active Protocol: Document 12/11/21 14:21 LRN (Rec: 12/11/21 15:05 LRN [id number]) Ultrasound Therapy Treatment R Biceps Tendon Treatment Duration (minutes) 8 Patient Position Supine Coupling Medium Ultrasound Gel Applicator Size (cm2) 2 Frequency Setting (mHz) 1 Mode Setting Pulsed Duty Cycle 50% Intensity Setting (w/cm2) 1.0 PT-OP-T Assessment and Plan Start: 11/16/21 18:20 Freq: Status: Active Protocol: Document 12/20/21 14:35 LRN (Rec: 12/20/21 15:19 LRN [id number]) Physical Therapy Assessment Goals Three Impairment Pain 6/10 with bending of elbow activities Impairment Pain that lingers for days when using R elbow flexors. Pain limiting function per UE Quickdash score of 31 (20-39% impaired, score 20-39) Short Term Goal (STG) Pt will be able to lift light weights groceries, with R UE with pain no greater than 3/10 . (12/13/21: Row ex with 20# without pain). STG Duration 01/08/22 (12/20/21: MET GOAL) [facility] Goal (LTG) Pt will be able to return to prior level of function of Physical Training, using R arm (20-25#) with intermittent mild to no R biceps pain. LTG Duration 02/22/22 Two Impairment Decreased R elbow/shoulder strength Impairment R shoulder: AB, AD, ER, IR is 4/5 (Flex/Ext is 5/5). R elbow: flex/pronation is 4/ 5. Short Term Goal (STG) Pt will be educated in progressive R shoulder/elbow strengthening, scapular depression, & Trunk L SB stretch ex. (12/13/21: Pt I/S in progression of bicep strengthening for slow addition of weights) STG Duration 01/08/22 Mathematical Technician Goal (LTG) Pt will demonstrate improved R elbow strength to 4+/5 to 5/5 , with ability to carry groceries into house or do housework chores (taking out trash, lifting 20-25#) with minimal to no pain. (12/20/21: Pt able to lift 3 bags of groceries out of his car. Not assessed housework chores) LTG Duration 02/22/22 (12/20/21: Partially met) One Impairment Lacks appropriate self care HEP Impairment Posture: R shoulder elevated & C-curve of spine with apex on the left. Short Term Goal (STG) Pt will be educated R elbow edema & pain management. PT will be educated in proper posture (correct R shoulder elevation and spinal C-curve) STG Duration 11/22/21 (11/22/21: MET GOAL ) [facility] Goal (LTG) Pt will be independent in a self care HEP of R shoulder/ elbow strengthening ex's. (12/13/21: Progressed self care of progressive strengthening of Biceps at his local gym, increasing weights in 1-2.5# increments) LTG Duration 02/22/22 (12/13/21: Progressed Assessment Summary Assessment Pt is able to carry 3 bags of groceries without thinking and without pain. Physical Therapy Plan Frequency and Duration Frequency of Treatment 2x/Week Duration of Treatment 12 treatment visits Plan of Care Start Date 11/22/21 Plan of Care End Date 02/22/22 Next Visit Focus/Plan Next Note Type Treatment Note Next Visit Plan Cont strengthening of R biceps /wrist, adding grocery carrying ex, US as needed for pain. Next tx: Assess pt's ability to carry 20-25# garbage out of house. HEP: R shoulder strengthening review (scapular depression), and trunk L SB stretch ( addressing STG #2); Add HEP: progressive R shoulder/elbow strengthening for load on R biceps tendon. Add isometric holding training (holding groceries). Check for need of UE neural stretch Add WBing with elbow in full ext ex (shuttle) End with Iontophoresis or CP ( if needed).
--- NOTE | 2021-12-25 15:56 | PT.OTN ---
Current Diagnoses Muscle weakness (generalized) (12/25/21) Bicipital tendinitis, unspecified shoulder (12/25/21) Bicipital tendinitis, right shoulder (12/25/21) Physical Therapy Treatment Note PT-OP-A Visit Information Start: 11/16/21 18:20 Freq: Status: Active Protocol: Document 12/25/21 14:39 LRN (Rec: 12/25/21 15:55 LRN [id number]) Out-Patient Physical Therapy Visit Information Visit Information Visit Type Treatment Note Visit Start Time 14:39 Visit Stop Time 15:26 Total Visit Minutes 47 Visit Number 9 Evaluation Information Evaluation Date 11/22/21 Precautions Precautions Medication controlled depression. Dislocated R shoulder x 2 ( 2019) doing pull ups. PT-OP-B Current Condition Start: 11/16/21 18:20 Freq: Status: Active Protocol: Document 11/22/21 14:19 LRN (Rec: 11/22/21 16:25 LRN [id number]) Current Condition History of Current Condition Onset Date 6 months ago Current Complaints Pain with flexing of the R arm that dissapates over time. History of Current Condition Was doing pull ups and noticed a sharp pain on inside of elbow. Stopped working out for 3-4 days and took IBP because any lifting caused a lot of pain. Any time bending the elbow causes pain. Now affecting daily activities ( carrying groceries or moving things flairs it up). R inner [place] pain[place]. Recent x-rays at [facility]. Hasn't worked out for 6 wks since the holidays and is limited in what he can do to prevent flare up of R elbow, and it hasn't improved . PT usually biannually, but since Covid and Bicep injury, PT test has been put on hold. Pt is R handed. Prior Treatments and Tests X-ray R Elbow taken at [facility]. Ultrasound to R elbow. Ices it, wears compression sock on elbow, IBP, TENS unit . Future Testing and Treatments Planned Referred to Dr. Tobin, orthopedist. MRI planned ~ in 2 weeks, then will see orthopedist. Treatment Goals Patient/Caregiver Goals Pt goal with therapy is to decrease the pain to do PT ( physical training). Must PT 2x/year for [employer] (push ups, run, sit ups). Pt goal is to improve ability to carry grocery into house; housework chores (taking out trash, lifting 20-25#). Prior Functional Status Baseline Function- ADL's Independent Baseline Function- Mobility Independent Baseline Function- Recreation/Hobbies Exercised at gym. Row 65#. Can plate of 45# wgt normally. Current Functional Impairments (Reported) Functional Limitations- ADL's 20-25# lifting causes considerable pain. Unable to do pull ups, carry groceries or lift and move objects. Functional Limitations- Work/School Has not had 2x/year, PT assessment for [employer] (push ups, run, sit ups). Functional Limitations- Recreation/ Exercises except for pulling Hobbies motion at elbow. Has stopped body ex's (able to do lat pull down w/arms pulled in, but not in V-position). Exercises 3-4 days/week but not doing elbow flex ex's. Personal Factors Other Personal Factors That May Effect Depression Therapy/Recovery PT exercising group 3-4 days/ week. PT-OP-C Subjective Start: 11/16/21 18:20 Freq: Status: Active Protocol: Document 12/25/21 14:39 LRN (Rec: 12/25/21 15:55 LRN [id number]) OP-PT Subjective Patient Comments Patient Comments States 4 days ago did row machine 8-10' and did lifting at gym (row) and thinks he was rowing 100+ wgt and didn't feel heavy, but had the twinge of pain and stopped PT-OP-H Neuro Start: 11/16/21 18:20 Freq: Status: Active Protocol: Document 11/22/21 14:19 LRN (Rec: 11/22/21 16:25 LRN [id number]) Sensation Evaluation Gross Sensation Gross Sensation WNL Deep Tendon Reflex & Clonus Assessment Deep Tendon Reflex Right Brachioradialis Deep Tendon Reflex 2+ Normal Left Brachioradialis Deep Tendon Reflex 2+ Normal Right Tricep Deep Tendon Reflex 0 Absent Left Tricep Deep Tendon Reflex 0 Absent Right Bicep Deep Tendon Reflex 0 Absent Left Bicep Deep Tendon Reflex 0 Absent PT-OP-J Posture/Palpation/Skin Start: 11/16/21 18:20 Freq: Status: Active Protocol: Document 11/22/21 14:19 LRN (Rec: 11/22/21 16:25 LRN [id number]) Posture Evaluation Position Standing Head/C-Spine Posture Forward Head L-Spine Posture Decreased Lordosis Shoulder Posture (R) Elevated Comments Posture Comments C-curve of spine with apex. Slight fwd head. Palpation Assessment Location R biceps Palpation Location Biceps @ Radius & Brachialis @ Ulna Tendon Palpation Findings Soft Tissue Tightness, Tenderness PT-OP-K Range of Motion Start: 11/16/21 18:20 Freq: Status: Active Protocol: Document 11/22/21 14:19 LRN (Rec: 11/22/21 16:25 LRN [id number]) Elbow/Forearm Range of Motion Elbow/Forearm Right Passive Elbow/Forearm ROM WFL Yes ROM Testing Position Sitting Comments No pain with AROM Left Active Elbow/Forearm ROM WFL Yes ROM Testing Position Sitting PT-OP-M Strength Start: 11/16/21 18:20 Freq: Status: Active Protocol: Document 11/22/21 14:19 LRN (Rec: 11/22/21 16:25 LRN [id number]) Shoulder Strength Shoulder Manual Muscle Testing Right Flexion 5 Normal Extension 5 Normal Abduction (C5) 4 Good Adduction 4 Good External Rotation 4 Good Internal Rotation 4 Good Left Comments Generally 5/5. Elbow/Forearm Strength Elbow and Forearm Manual Muscle Testing Right Flexion (C6) 4 Good Extension (C7) 5 Normal Pronation 4 Good Supination 5 Normal Comments Brachioradialis 5/5 without pain Biceps 4/5 with pain Left Flexion (C6) 5 Normal Extension (C7) 5 Normal Pronation 5 Normal Supination 5 Normal Comments Generally 5/5. Wrist Strength Wrist Manual Muscle Testing Right Comments Generally 5/5 Left Comments Generally 5/5 PT-OP-Q Treatments Start: 11/16/21 18:20 Freq: Status: Active Protocol: Document 12/25/21 14:39 LRN (Rec: 12/25/21 15:55 LRN [id number]) Cardio Equipment Upper Body Ergometer (UBE) Duration (Minutes) 6 RPM 60 Height 2.5 Therapeutic Exercises Sitting Exercises Biceps curl Sitting Exercise Name Biceps Curl (arm in sup, pron, neutral Side right Equipment Used 6# in sup, 4# in neutral & pron Reps/Minutes 10x, 10x, 4x respectively Comments Elbow in full ext, arm resting on knee. Sup/Pron Sitting Exercise Name Sup/Pron elbow flexed Side right Equipment Used 7# Reps/Minutes 10x holding hand wgt in normal position Comments Stopping at neutral with motions. Elbow flexed 45 deg' s UD/RD Sitting Exercise Name UD/RD with arm in flex, dependent, ended 30 flex @ elbow, forearm supported Side right Equipment Used 5#, 7# Reps/Minutes 10x 1 each Comments Much adjustments with positioning & lever arm to keep ex in painfree range. Wrist ext Sitting Exercise Name Wrist Ext Side right Equipment Used 5#, 7# Reps/Minutes 10x each Comments Elbow flexed Wrist flex Sitting Exercise Name Wrist flex Side right Equipment Used 5#, 7# Reps/Minutes 10x each Comments Elbow flexed PT-OP-R Modalities Start: 11/16/21 18:20 Freq: Status: Active Protocol: Document 12/25/21 14:39 LRN (Rec: 12/25/21 15:55 LR [id number]) Iontophoresis Treatment R distal biceps attachment Treatment Medication Dexamethasone (-) Medication Amount (mL) (ml) 1 Medication Dosage 80mA/min Treatment Polarity Negative to Negative Active Electrode Placement Biceps tendon attachement at radial tuberosity Dispersive Electrode Placement Biceps Treatment Duration (minutes) 240 Ultrasound Therapy Treatment R Biceps Tendon Treatment Duration (minutes) 8 Patient Position Sitting Coupling Medium Ultrasound Gel Applicator Size (cm2) 2 Frequency Setting (mHz) 1 Mode Setting Pulsed Duty Cycle 50% Intensity Setting (w/cm2) 1.0 PT-OP-T Assessment and Plan Start: 11/16/21 18:20 Freq: Status: Active Protocol: Document 12/25/21 14:39 LRN (Rec: 12/25/21 15:55 LRN [id number]) Physical Therapy Assessment Goals Three Impairment Pain 6/10 with bending of elbow activities Impairment Pain that lingers for days when using R elbow flexors. Pain limiting function per UE Quickdash score of 31 (20-39% impaired, score 20-39) Short Term Goal (STG) Pt will be able to lift light weights groceries, with R UE with pain no greater than 3/10 . (12/13/21: Row ex with 20# without pain). STG Duration 01/08/22 (12/20/21: MET GOAL) Residential Goal (LTG) Pt will be able to return to prior level of function of Physical Training, using R arm (20-25#) with intermittent mild to no R biceps pain. LTG Duration 02/22/22 Two Impairment Decreased R elbow/shoulder strength Impairment R shoulder: AB, AD, ER, IR is 4/5 (Flex/Ext is 5/5). R elbow: flex/pronation is 4/ 5. Short Term Goal (STG) Pt will be educated in progressive R shoulder/elbow strengthening, scapular depression, & Trunk L SB stretch ex. (12/13/21: Pt I/S in progression of bicep strengthening for slow addition of weights) STG Duration 01/08/22 Continuous Wave Operator Goal (LTG) Pt will demonstrate improved R elbow strength to 4+/5 to 5/5 , with ability to carry groceries into house or do housework chores (taking out trash, lifting 20-25#) with minimal to no pain. (12/20/21: Pt able to lift 3 bags of groceries out of his car. Not assessed housework chores) LTG Duration 02/22/22 (12/20/21: Partially met) One Impairment Lacks appropriate self care HEP Impairment Posture: R shoulder elevated & C-curve of spine with apex on the left. Short Term Goal (STG) Pt will be educated R elbow edema & pain management. PT will be educated in proper posture (correct R shoulder elevation and spinal C-curve) STG Duration 11/22/21 (11/22/21: MET GOAL ) Residential Goal (LTG) Pt will be independent in a self care HEP of R shoulder/ elbow strengthening ex's. (12/13/21: Progressed self care of progressive strengthening of Biceps at his local gym, increasing weights in 1-2.5# increments) LTG Duration 02/22/22 (12/13/21: Progressed Assessment Summary Assessment Pt attends with recent flare up of R bicep from pain after exercise gym workout 4 days ago of rowing 8-10' and row work of 100+ weight. Today, pt able to ex without loss of strength in R wrist, but R bicep curl strength/endurance lessened ~1 set of 10, and 1# less. Good tolerance to UBE endurance ex of 6'. Physical Therapy Plan Frequency and Duration Frequency of Treatment 2x/Week Duration of Treatment 12 treatment visits Plan of Care Start Date 11/22/21 Plan of Care End Date 02/22/22 Next Visit Focus/Plan Next Note Type Progress Note Next Visit Plan Recheck for PN. Assess response to Iontophoresis. Cont strengthening of R biceps /wrist, adding grocery carrying ex, US as needed for pain. Assess pt's ability to carry 20-25# garbage out of house. HEP: R shoulder strengthening review (scapular depression), and trunk L SB stretch ( addressing STG #2); Add HEP: progressive R shoulder/elbow strengthening for load on R biceps tendon. Add isometric holding training (holding groceries). Check for need of UE neural stretch Add WBing with elbow in full ext ex (shuttle) End with Iontophoresis or CP ( if needed).
--- NOTE | 2021-12-27 15:57 | PT.OTN ---
Current Diagnoses Muscle weakness (generalized) (12/27/21) Bicipital tendinitis, unspecified shoulder (12/27/21) Bicipital tendinitis, right shoulder (12/27/21) Physical Therapy Treatment Note PT-OP-A Visit Information Start: 11/16/21 18:20 Freq: Status: Active Protocol: Document 12/27/21 14:31 LRN (Rec: 12/27/21 15:57 LRN [id number]) Out-Patient Physical Therapy Visit Information Visit Information Visit Type Progress Note Visit Start Time 14:32 Visit Stop Time 15:27 Total Visit Minutes 55 Visit Number 10 Evaluation Information Evaluation Date 11/22/21 Precautions Precautions Medication controlled depression. Dislocated R shoulder x 2 ( 2019) doing pull ups. PT-OP-B Current Condition Start: 11/16/21 18:20 Freq: Status: Active Protocol: Document 11/22/21 14:19 LRN (Rec: 11/22/21 16:25 LRN [id number]) Current Condition History of Current Condition Onset Date 6 months ago Current Complaints Pain with flexing of the R arm that dissapates over time. History of Current Condition Was doing pull ups and noticed a sharp pain on inside of elbow. Stopped working out for 3-4 days and took IBP because any lifting caused a lot of pain. Any time bending the elbow causes pain. Now affecting daily activities ( carrying groceries or moving things flairs it up). [place]. Recent x-rays at [facility]. Hasn't worked out for 6 wks since the holidays and is limited in what he can do to prevent flare up of R elbow, and it hasn't improved . PT usually biannually, but since Covid and Bicep injury, PT test has been put on hold. Pt is R handed. Prior Treatments and Tests X-ray R Elbow taken at [facility]. Ultrasound to R elbow. Ices it, wears compression sock on elbow, IBP, TENS unit . Future Testing and Treatments Planned Referred to Dr. Tobin, orthopedist. MRI planned ~ in 2 weeks, then will see orthopedist. Treatment Goals Patient/Caregiver Goals Pt goal with therapy is to decrease the pain to do PT ( physical training). Must PT 2x/year for [employer] (push ups, run, sit ups). Pt goal is to improve ability to carry grocery into house; housework chores (taking out trash, lifting 20-25#). Prior Functional Status Baseline Function- ADL's Independent Baseline Function- Mobility Independent Baseline Function- Recreation/Hobbies Exercised at gym. Row 65#. Can plate of 45# wgt normally. Current Functional Impairments (Reported) Functional Limitations- ADL's 20-25# lifting causes considerable pain. Unable to do pull ups, carry groceries or lift and move objects. Functional Limitations- Work/School Has not had 2x/year, PT assessment for [employer] (push ups, run, sit ups). Functional Limitations- Recreation/ Exercises except for pulling Hobbies motion at elbow. Has stopped body ex's (able to do lat pull down w/arms pulled in, but not in V-position). Exercises 3-4 days/week but not doing elbow flex ex's. Personal Factors Other Personal Factors That May Effect Depression Therapy/Recovery PT exercising group 3-4 days/ week. PT-OP-C Subjective Start: 11/16/21 18:20 Freq: Status: Active Protocol: Document 12/27/21 14:31 LRN (Rec: 12/27/21 15:57 LRN [id number]) OP-PT Subjective Patient Comments Patient Comments States he was told he only had a tendonitis of the R biceps at the radius and lateral epicondylitis. PT-OP-H Neuro Start: 11/16/21 18:20 Freq: Status: Active Protocol: Document 11/22/21 14:19 LRN (Rec: 11/22/21 16:25 LRN [id number]) Sensation Evaluation Gross Sensation Gross Sensation WNL Deep Tendon Reflex & Clonus Assessment Deep Tendon Reflex Right Brachioradialis Deep Tendon Reflex 2+ Normal Left Brachioradialis Deep Tendon Reflex 2+ Normal Right Tricep Deep Tendon Reflex 0 Absent Left Tricep Deep Tendon Reflex 0 Absent Right Bicep Deep Tendon Reflex 0 Absent Left Bicep Deep Tendon Reflex 0 Absent PT-OP-J Posture/Palpation/Skin Start: 11/16/21 18:20 Freq: Status: Active Protocol: Document 11/22/21 14:19 LRN (Rec: 11/22/21 16:25 LRN [id number]) Posture Evaluation Position Standing Head/C-Spine Posture Forward Head L-Spine Posture Decreased Lordosis Shoulder Posture (R) Elevated Comments Posture Comments C-curve of spine with apex. Slight fwd head. Palpation Assessment Location R biceps Palpation Location Biceps @ Radius & Brachialis @ Ulna Tendon Palpation Findings Soft Tissue Tightness, Tenderness PT-OP-K Range of Motion Start: 11/16/21 18:20 Freq: Status: Active Protocol: Document 11/22/21 14:19 LRN (Rec: 11/22/21 16:25 LRN [id number]) Elbow/Forearm Range of Motion Elbow/Forearm Right Passive Elbow/Forearm ROM WFL Yes ROM Testing Position Sitting Comments No pain with AROM Left Active Elbow/Forearm ROM WFL Yes ROM Testing Position Sitting PT-OP-M Strength Start: 11/16/21 18:20 Freq: Status: Active Protocol: Document 11/22/21 14:19 LRN (Rec: 11/22/21 16:25 LRN [id number]) Shoulder Strength Shoulder Manual Muscle Testing Right Flexion 5 Normal Extension 5 Normal Abduction (C5) 4 Good Adduction 4 Good External Rotation 4 Good Internal Rotation 4 Good Left Comments Generally 5/5. Elbow/Forearm Strength Elbow and Forearm Manual Muscle Testing Right Flexion (C6) 4 Good Extension (C7) 5 Normal Pronation 4 Good Supination 5 Normal Comments Brachioradialis 5/5 without pain Biceps 4/5 with pain Left Flexion (C6) 5 Normal Extension (C7) 5 Normal Pronation 5 Normal Supination 5 Normal Comments Generally 5/5. Wrist Strength Wrist Manual Muscle Testing Right Comments Generally 5/5 Left Comments Generally 5/5 PT-OP-Q Treatments Start: 11/16/21 18:20 Freq: Status: Active Protocol: Document 12/27/21 14:31 LRN (Rec: 12/27/21 15:57 LRN [id number]) Therapeutic Exercises Sitting Exercises Biceps curl Sitting Exercise Name Biceps Curl (arm in sup, less reps in pron,, neutral) Side right Equipment Used 4# in neutral & pron Reps/Minutes 10x 3 Comments Elbow in full ext, arm resting on lat pull down support. Sup/Pron Sitting Exercise Name Sup/Pron elbow flexed Side right Equipment Used 7# Reps/Minutes 10x holding hand wgt in normal position Comments Stopping at neutral with motions. Elbow flexed 45 deg' s UD/RD Sitting Exercise Name UD/RD with arm dependent Side right Equipment Used 7# Reps/Minutes 10x 1 each Wrist ext Sitting Exercise Name Wrist Ext Side right Equipment Used 5#, 7# Reps/Minutes 10x each Comments Elbow flexed Wrist flex Sitting Exercise Name Wrist flex Side right Equipment Used 6#, 7# Reps/Minutes 10x each Comments Elbow flexed Standing Exercises Isometric R elbow flex Standing Exercise Name Walking in grocery sack carrying position Side right Reps/Minutes 120' x 1 Comments Tension, mild burning pain with ex Self-Care/Home Management Treatment Education Patient Education Pain Management Other Education Reviewed self care if having R elbow pain (use of ice and rest). Discussed gradual progression of strengthening ( progressively working up to 10rep x 3 before increasing wgt w/decreased reps). PT-OP-R Modalities Start: 11/16/21 18:20 Freq: Status: Active Protocol: Document 12/27/21 14:31 LRN (Rec: 12/27/21 15:57 [facility] [id number]) Ultrasound Therapy Treatment R wrist ext tendons @ lat epicondyle Treatment Duration (minutes) 8 Patient Position Sitting Applicator Size (cm2) 2 Frequency Setting (mHz) 1 Mode Setting Pulsed Duty Cycle 50% Intensity Setting (w/cm2) 1 R Biceps Tendon Treatment Duration (minutes) 8 Patient Position Sitting Coupling Medium Ultrasound Gel Applicator Size (cm2) 2 Frequency Setting (mHz) 1 Mode Setting Pulsed Duty Cycle 50% Intensity Setting (w/cm2) 1.0 PT-OP-T Assessment and Plan Start: 11/16/21 18:20 Freq: Status: Active Protocol: Document 12/27/21 14:31 LRN (Rec: 12/27/21 15:57 [facility] [id number]) Physical Therapy Assessment Rehab Potential Rehabilitation Potential Excellent Evaluation Complexity Number of Personal Factors/Comorbidities 1-2 Number of Body Systems Impaired 4 or More Clinical Presentation at Evaluation Evolving Impairments Impairments Activity Tolerance,Pain, Posture,Strength Goals Three Impairment Pain 6/10 with bending of elbow activities Impairment Pain that lingers for days when using R elbow flexors. Pain limiting function per UE Quickdash score of 31 (20-39% impaired, score 20-39) Short Term Goal (STG) Pt will be able to lift light weights groceries, with R UE with pain no greater than 3/10 . (12/13/21: Row ex with 20# without pain). STG Duration 01/08/22 (12/20/21: MET GOAL) Healthcare Representative Goal (LTG) Pt will be able to return to prior level of function of Physical Training, using R arm (20-25#) with intermittent mild to no R biceps pain. LTG Duration 02/22/22 Two Impairment Decreased R elbow/shoulder strength Impairment R shoulder: AB, AD, ER, IR is 4/5 (Flex/Ext is 5/5). R elbow: flex/pronation is 4/ 5. Short Term Goal (STG) Pt will be educated in progressive R shoulder/elbow strengthening, scapular depression, & Trunk L SB stretch ex. (12/13/21: Pt I/S in progression of bicep strengthening for slow addition of weights) STG Duration 01/08/22 [facility] Goal (LTG) Pt will demonstrate improved R elbow strength to 4+/5 to 5/5 , with ability to carry groceries into house or do housework chores (taking out trash, lifting 20-25#) with minimal to no pain. (12/20/21: Pt able to lift 3 bags of groceries out of his car. Not assessed housework chores) LTG Duration 02/22/22 (12/20/21: Partially met) One Impairment Lacks appropriate self care HEP Impairment Posture: R shoulder elevated & C-curve of spine with apex on the left. Short Term Goal (STG) Pt will be educated R elbow edema & pain management. PT will be educated in proper posture (correct R shoulder elevation and spinal C-curve) STG Duration 11/22/21 (11/22/21: MET GOAL ) Healthcare Representative Goal (LTG) Pt will be independent in a self care HEP of R shoulder/ elbow strengthening ex's. (12/13/21: Progressed self care of progressive strengthening of Biceps at his local gym, increasing weights in 1-2.5# increments) LTG Duration 02/22/22 (12/13/21: Progressed Assessment Summary Assessment Pt had + response to use Iontophoresis; pt able to ex 3 hrs after last session and did seated rows 100+# without onset of pain. Pt has attended 9 therapy visits and is able to demonstrate full R elbow AROM without pain. His R elbow strength is improving as noted by his increased tolerance to resisted elbow strengthening. The pt has 2 more visits allowed by his insurance at this time; therefore the remaining time will be focused on educating the pt in self care progression of strengthening as he tolerates. The pt would benefit from further therapy to gradually progress him back to his prior level of function. It is expected the pt will chose to discontinue therapy if not financially covered by his insurance; therefore we will continue therapy at least for the next 2 visits to work towards achieving the above stated goals. The pt will decide if he will continue after the next 2 visits, once insurance limites are reached and coverage defined. Physical Therapy Plan Frequency and Duration Frequency of Treatment 2x/Week Duration of Treatment 12 treatment visits Plan of Care Start Date 11/22/21 Plan of Care End Date 02/22/22 Therapeutic Interventions Therapeutic Interventions Home Exercise Program,Joint Mobilizations,Manual Therapy, Patient/Caregiver Education, Self-Care/Home Management,Soft Tissue Mobilization,Taping, Therapeutic Activities, Therapeutic Exercises Modalities Cold Pack/Ice Massage,Electric Stimulation,Hot Packs, Iontophoresis,Ultrasound Other Therapeutic Interventions Iontophoresis with 4mg/mL Dexamethasone with Sodium Phosphate. Next Visit Focus/Plan Next Note Type Treatment Note Next Visit Plan Possible DC in 2 visits per insurance, limiting the pt's choice due to finances. Complete UE QuickDASH and assess goal #3. Recheck R elbow strength. Issue HEP for shoulder/elbow strengthening, scapular depression, & Trunk L SB stretch ex. Cont strengthening of R biceps /wrist, adding grocery carrying ex, US as needed for pain. Assess pt's ability to carry 20-25# garbage out of house. HEP: R shoulder strengthening review (scapular depression), and trunk L SB stretch ( addressing STG #2); Add HEP: progressive R shoulder/elbow strengthening for load on R biceps tendon. Add isometric holding training (holding groceries). Check for need of UE neural stretch Add WBing with elbow in full ext ex (shuttle) End with Iontophoresis or CP ( if needed).
--- NOTE | 2022-01-07 16:52 | PT.OTN ---
Current Diagnoses Muscle weakness (generalized) (01/07/22) Bicipital tendinitis, unspecified shoulder (01/07/22) Bicipital tendinitis, right shoulder (01/07/22) Physical Therapy Treatment Note PT-OP-A Visit Information Start: 11/16/21 18:20 Freq: Status: Active Protocol: Document 01/07/22 14:30 LRN (Rec: 01/07/22 15:44 LRN [id number]) Out-Patient Physical Therapy Visit Information Visit Information Visit Type Treatment Note Visit Start Time 14:30 Visit Stop Time 15:20 Total Visit Minutes 50 Visit Number 11 Evaluation Information Evaluation Date 11/22/21 Precautions Precautions Medication controlled depression. Dislocated R shoulder x 2 ( 2019) doing pull ups. PT-OP-B Current Condition Start: 11/16/21 18:20 Freq: Status: Active Protocol: Document 11/22/21 14:19 LRN (Rec: 11/22/21 16:25 LRN [id number]) Current Condition History of Current Condition Onset Date 6 months ago Current Complaints Pain with flexing of the R arm that dissapates over time. History of Current Condition Was doing pull ups and noticed a sharp pain on inside of elbow. Stopped working out for 3-4 days and took IBP because any lifting caused a lot of pain. Any time bending the elbow causes pain. Now affecting daily activities ( carrying groceries or moving things flairs it up). R [place]. Recent x-rays at [facility]. Hasn't worked out for 6 wks since the holidays and is limited in what he can do to prevent flare up of R elbow, and it hasn't improved . PT usually biannually, but since Covid and Bicep injury, PT test has been put on hold. Pt is R handed. Prior Treatments and Tests X-ray R Elbow taken at [facility]. Ultrasound to R elbow. Ices it, wears compression sock on elbow, IBP, TENS unit . Future Testing and Treatments Planned Referred to Dr. Tobin, orthopedist. MRI planned ~ in 2 weeks, then will see orthopedist. Treatment Goals Patient/Caregiver Goals Pt goal with therapy is to decrease the pain to do PT ( physical training). Must PT 2x/year for [employer] (push ups, run, sit ups). Pt goal is to improve ability to carry grocery into house; housework chores (taking out trash, lifting 20-25#). Prior Functional Status Baseline Function- ADL's Independent Baseline Function- Mobility Independent Baseline Function- Recreation/Hobbies Exercised at gym. Row 65#. Can plate of 45# wgt normally. Current Functional Impairments (Reported) Functional Limitations- ADL's 20-25# lifting causes considerable pain. Unable to do pull ups, carry groceries or lift and move objects. Functional Limitations- Work/School Has not had 2x/year, PT assessment for [employer] (push ups, run, sit ups). Functional Limitations- Recreation/ Exercises except for pulling Hobbies motion at elbow. Has stopped body ex's (able to do lat pull down w/arms pulled in, but not in V-position). Exercises 3-4 days/week but not doing elbow flex ex's. Personal Factors Other Personal Factors That May Effect Depression Therapy/Recovery PT exercising group 3-4 days/ week. PT-OP-C Subjective Start: 11/16/21 18:20 Freq: Status: Active Protocol: Document 01/07/22 14:30 LRN (Rec: 01/07/22 15:44 LRN [id number]) OP-PT Subjective Patient Comments Patient Comments 10 times better than when first started. 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 Using the row machine at the gym is not painful, but the weighted row is painful. Feels he is 80% to normal. PT-OP-H Neuro Start: 11/16/21 18:20 Freq: Status: Active Protocol: Document 11/22/21 14:19 LRN (Rec: 11/22/21 16:25 LRN [id number]) Sensation Evaluation Gross Sensation Gross Sensation WNL Deep Tendon Reflex & Clonus Assessment Deep Tendon Reflex Right Brachioradialis Deep Tendon Reflex 2+ Normal Left Brachioradialis Deep Tendon Reflex 2+ Normal Right Tricep Deep Tendon Reflex 0 Absent Left Tricep Deep Tendon Reflex 0 Absent Right Bicep Deep Tendon Reflex 0 Absent Left Bicep Deep Tendon Reflex 0 Absent PT-OP-J Posture/Palpation/Skin Start: 11/16/21 18:20 Freq: Status: Active Protocol: Document 11/22/21 14:19 LRN (Rec: 11/22/21 16:25 LRN [id number]) Posture Evaluation Position Standing Head/C-Spine Posture Forward Head L-Spine Posture Decreased Lordosis Shoulder Posture (R) Elevated Comments Posture Comments C-curve of spine with apex. Slight fwd head. Palpation Assessment Location R biceps Palpation Location Biceps @ Radius & Brachialis @ Ulna Tendon Palpation Findings Soft Tissue Tightness, Tenderness PT-OP-K Range of Motion Start: 11/16/21 18:20 Freq: Status: Active Protocol: Document 11/22/21 14:19 LRN (Rec: 11/22/21 16:25 LRN [id number]) Elbow/Forearm Range of Motion Elbow/Forearm Right Passive Elbow/Forearm ROM WFL Yes ROM Testing Position Sitting Comments No pain with AROM Left Active Elbow/Forearm ROM WFL Yes ROM Testing Position Sitting PT-OP-M Strength Start: 11/16/21 18:20 Freq: Status: Active Protocol: Document 11/22/21 14:19 LRN (Rec: 11/22/21 16:25 LRN [id number]) Shoulder Strength Shoulder Manual Muscle Testing Right Flexion 5 Normal Extension 5 Normal Abduction (C5) 4 Good Adduction 4 Good External Rotation 4 Good Internal Rotation 4 Good Left Comments Generally 5/5. Elbow/Forearm Strength Elbow and Forearm Manual Muscle Testing Right Flexion (C6) 4 Good Extension (C7) 5 Normal Pronation 4 Good Supination 5 Normal Comments Brachioradialis 5/5 without pain Biceps 4/5 with pain Left Flexion (C6) 5 Normal Extension (C7) 5 Normal Pronation 5 Normal Supination 5 Normal Comments Generally 5/5. Wrist Strength Wrist Manual Muscle Testing Right Comments Generally 5/5 Left Comments Generally 5/5 PT-OP-Q Treatments Start: 11/16/21 18:20 Freq: Status: Active Protocol: Document 01/07/22 14:30 LRN (Rec: 01/07/22 15:44 LRN [id number]) Cardio Equipment Upper Body Ergometer (UBE) Duration (Minutes) 8 RPM 60 Seat Position 10 Height 2.5 Other 4' fwd/bkwd. Gym Equipment Cable Column (Body Solid) Tricep ext Details 10# and verbal discussion of 165# at his gym and diff arm positions Reps/Time 5' Row Details Verbal discussion of use gym machines. Reps/Time 5' Therapeutic Exercises Sitting Exercises Dips Sitting Exercise Name Discussion of use of dips for strengthening and mechanics of dips Reps/Minutes 5' Comments Discussed lever arm differences in strengthening vs tricep ext overhead/low Biceps curl Sitting Exercise Name Discussion of Biceps Curl after strengthening ex's (in sup, pron, neutral) Side right Reps/Minutes 6' Standing Exercises Isometric R elbow flex Standing Exercise Name Walking in grocery sack carrying position (90 deg's elbow flex) Side right Reps/Minutes 10#, 50 ft x 3 Comments Mild discomfort at end of exercise. L Trunk SB stretch Standing Exercise Name Verbal review to do as Home ex . Side left Reps/Minutes 2' Elbow curls Standing Exercise Name 1 and 3 rep max Side right Equipment Used Hand and wrist weights Reps/Minutes 1 rep @ 4#, 5#, 6#, 7#, 10#, 3 rep max @ 8#, 9# Comments Pt moving slow and cautious through eccentric contraction PT-OP-R Modalities Start: 11/16/21 18:20 Freq: Status: Active Protocol: Document 01/07/22 14:30 LRN (Rec: 01/07/22 16:33 LRN [id number]) Ultrasound Therapy Treatment R Triceps tendon @ Olecranon Process Treatment Duration (minutes) 4 Patient Position Sitting Coupling Medium Ultrasound Gel Applicator Size (cm2) 2 Mode Setting Pulsed Duty Cycle 50% Intensity Setting (w/cm2) 1.0 R Biceps Tendon Treatment Duration (minutes) 4 Patient Position Sitting Coupling Medium Ultrasound Gel Applicator Size (cm2) 2 Frequency Setting (mHz) 1 Mode Setting Pulsed Duty Cycle 50% Intensity Setting (w/cm2) 1.0 PT-OP-T Assessment and Plan Start: 11/16/21 18:20 Freq: Status: Active Protocol: Document 01/07/22 14:30 LRN (Rec: 01/07/22 15:44 LRN [id number]) Physical Therapy Assessment Goals Three Impairment Pain 6/10 with bending of elbow activities Impairment Pain that lingers for days when using R elbow flexors. Pain limiting function per UE Quickdash score of 31 (20-39% impaired, score 20-39) Short Term Goal (STG) Pt will be able to lift light weights groceries, with R UE with pain no greater than 3/10 . (12/13/21: Row ex with 20# without pain). (01/07/22: Pt carried 20# RUE with elbow 90deg's flexed with minimal discomfort, and in full extension without pain). STG Duration 01/08/22 (12/20/21: MET GOAL) [facility] Goal (LTG) Pt will be able to return to prior level of function of Physical Training, using R arm (20-25#) with intermittent mild to no R biceps pain. LTG Duration 02/22/22 Two Impairment Decreased R elbow/shoulder strength Impairment R shoulder: AB, AD, ER, IR is 4/5 (Flex/Ext is 5/5). R elbow: flex/pronation is 4/ 5. Short Term Goal (STG) Pt will be educated in progressive R shoulder/elbow strengthening, scapular depression, & Trunk L SB stretch ex. (12/13/21: Pt I/S in progression of bicep strengthening for slow addition of weights) STG Duration 01/08/22 [facility] Goal (LTG) Pt will demonstrate improved R elbow strength to 4+/5 to 5/5 , with ability to carry groceries into house or do housework chores (taking out trash, lifting 20-25#) with minimal to no pain. (12/20/21: Pt able to lift 3 bags of groceries out of his car. Not assessed housework chores) LTG Duration 02/22/22 (01/07/22: MET GOAL) One Impairment Lacks appropriate self care HEP Impairment Posture: R shoulder elevated & C-curve of spine with apex on the left. Short Term Goal (STG) Pt will be educated R elbow edema & pain management. PT will be educated in proper posture (correct R shoulder elevation and spinal C-curve) STG Duration 11/22/21 (11/22/21: MET GOAL ) [facility] Goal (LTG) Pt will be independent in a self care HEP of R shoulder/ elbow strengthening ex's. (12/13/21: Progressed self care of progressive strengthening of Biceps at his local gym, increasing weights in 1-2.5# increments) LTG Duration 02/22/22 (12/13/21: Progressed Progress Towards Goals Progress Comments LTG #2 MET. 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 Assessment Summary Assessment Pt able to demonstrate ability to carry 20# with elbow at 90 deg's flex without biceps pain for 50' x 2 and with R arm dependent position with 20 # for 50'x 2 without pain. He has improved his tolerance to R Biceps eccentric contraction to 8# for 3 rep max; 9# for 1 rep max. Pt reportedly doing tricep strengthening at his local gym of 165#; therefore strengthening not needed in therapy. Physical Therapy Plan Frequency and Duration Frequency of Treatment 2x/Week Duration of Treatment 12 treatment visits Plan of Care Start Date 11/22/21 Plan of Care End Date 02/22/22 Next Visit Focus/Plan Next Note Type Treatment Note Next Visit Plan *DC next visit after issuing HEP of shoulder RC & scapular depression strengthening, L Trunk SB stretch & review elbow (flex) strengthening using 1-3 rep max. *Assess trunk L SB ROM for improvement to normalize *Assess LTG #3, & progress towards STG #2, and LTG #1. *Complete UE QuickDASH. *Recheck R elbow strength. Check for need of UE neural stretch *Add WBing with elbow in full ext ex (shuttle) US as needed for pain.
--- NOTE | 2022-01-14 17:10 | PT.OTN ---
Current Diagnoses Muscle weakness (generalized) (01/14/22) Bicipital tendinitis, unspecified shoulder (01/14/22) Bicipital tendinitis, right shoulder (01/14/22) Physical Therapy Treatment Note PT-OP-A Visit Information Start: 11/16/21 18:20 Freq: Status: Active Protocol: Document 01/14/22 14:35 LRN (Rec: 01/14/22 15:34 LRN [id number]) Out-Patient Physical Therapy Visit Information Visit Information Visit Type Discharge Summary Visit Start Time 14:35 Visit Stop Time 15:34 Total Visit Minutes 59 Visit Number 12 Evaluation Information Evaluation Date 11/22/21 Precautions Precautions Medication controlled depression. Dislocated R shoulder x 2 ( 2019) doing pull ups. PT-OP-B Current Condition Start: 11/16/21 18:20 Freq: Status: Active Protocol: Document 11/22/21 14:19 LRN (Rec: 11/22/21 16:25 LRN [id number]) Current Condition History of Current Condition Onset Date 6 months ago Current Complaints Pain with flexing of the R arm that dissapates over time. History of Current Condition Was doing pull ups and noticed a sharp pain on inside of elbow. Stopped working out for 3-4 days and took IBP because any lifting caused a lot of pain. Any time bending the elbow causes pain. Now affecting daily activities ( carrying groceries or moving things flairs it up). R [place]. Recent x-rays at [facility]. Hasn't worked out for 6 wks since the holidays and is limited in what he can do to prevent flare up of R elbow, and it hasn't improved . PT usually biannually, but since Covid and Bicep injury, PT test has been put on hold. Pt is R handed. Prior Treatments and Tests X-ray R Elbow taken at [facility]. Ultrasound to R elbow. Ices it, wears compression sock on elbow, IBP, TENS unit . Future Testing and Treatments Planned Referred to Dr. Tobin, orthopedist. MRI planned ~ in 2 weeks, then will see orthopedist. Treatment Goals Patient/Caregiver Goals Pt goal with therapy is to decrease the pain to do PT ( physical training). Must PT 2x/year for [employer] (push ups, run, sit ups). Pt goal is to improve ability to carry grocery into house; housework chores (taking out trash, lifting 20-25#). Prior Functional Status Baseline Function- ADL's Independent Baseline Function- Mobility Independent Baseline Function- Recreation/Hobbies Exercised at gym. Row 65#. Can plate of 45# wgt normally. Current Functional Impairments (Reported) Functional Limitations- ADL's 20-25# lifting causes considerable pain. Unable to do pull ups, carry groceries or lift and move objects. Functional Limitations- Work/School Has not had 2x/year, PT assessment for [employer] (push ups, run, sit ups). Functional Limitations- Recreation/ Exercises except for pulling Hobbies motion at elbow. Has stopped body ex's (able to do lat pull down w/arms pulled in, but not in V-position). Exercises 3-4 days/week but not doing elbow flex ex's. Personal Factors Other Personal Factors That May Effect Depression Therapy/Recovery PT exercising group 3-4 days/ week. PT-OP-C Subjective Start: 11/16/21 18:20 Freq: Status: Active Protocol: Document 01/14/22 14:35 LRN (Rec: 01/14/22 15:34 LRN [id number]) OP-PT Subjective Patient Comments Patient Comments 4 days ago did a pull up and hurt R biceps, but doing better today. Pt states he was told he had no tear of R biceps, but just tenditis. Patient Questionnaires Quick Dash- Upper Extremity Quick Dash UE Score 9.09 Quick Dash UE Impairment 1 to 19% Impaired (Score 1-19) PT-OP-H Neuro Start: 11/16/21 18:20 Freq: Status: Active Protocol: Document 11/22/21 14:19 LRN (Rec: 11/22/21 16:25 LRN [id number]) Sensation Evaluation Gross Sensation Gross Sensation WNL Deep Tendon Reflex & Clonus Assessment Deep Tendon Reflex Right Brachioradialis Deep Tendon Reflex 2+ Normal Left Brachioradialis Deep Tendon Reflex 2+ Normal Right Tricep Deep Tendon Reflex 0 Absent Left Tricep Deep Tendon Reflex 0 Absent Right Bicep Deep Tendon Reflex 0 Absent Left Bicep Deep Tendon Reflex 0 Absent PT-OP-J Posture/Palpation/Skin Start: 11/16/21 18:20 Freq: Status: Active Protocol: Document 11/22/21 14:19 LRN (Rec: 11/22/21 16:25 LRN [id number]) Posture Evaluation Position Standing Head/C-Spine Posture Forward Head L-Spine Posture Decreased Lordosis Shoulder Posture (R) Elevated Comments Posture Comments C-curve of spine with apex. Slight fwd head. Palpation Assessment Location R biceps Palpation Location Biceps @ Radius & Brachialis @ Ulna Tendon Palpation Findings Soft Tissue Tightness, Tenderness PT-OP-K Range of Motion Start: 11/16/21 18:20 Freq: Status: Active Protocol: Document 11/22/21 14:19 LRN (Rec: 11/22/21 16:25 LRN [id number]) Elbow/Forearm Range of Motion Elbow/Forearm Right Passive Elbow/Forearm ROM WFL Yes ROM Testing Position Sitting Comments No pain with AROM Left Active Elbow/Forearm ROM WFL Yes ROM Testing Position Sitting PT-OP-M Strength Start: 11/16/21 18:20 Freq: Status: Active Protocol: Document 01/14/22 14:35 LRN (Rec: 01/14/22 15:34 LRN [id number]) Elbow/Forearm Strength Elbow and Forearm Manual Muscle Testing Right Flexion (C6) 5 Normal Extension (C7) 5 Normal Pronation 5 Normal Supination 5 Normal Left Flexion (C6) 5 Normal Extension (C7) 5 Normal Pronation 5 Normal Supination 5 Normal Wrist Strength Wrist Manual Muscle Testing Right Flexion (C7) 5 Normal Extension (C6) 5 Normal Ulnar Deviation 5 Normal Radial Deviation 5 Normal Left Flexion (C7) 5 Normal Extension (C6) 5 Normal Ulnar Deviation 5 Normal Radial Deviation 5 Normal PT-OP-Q Treatments Start: 11/16/21 18:20 Freq: Status: Active Protocol: Document 01/14/22 14:35 LRN (Rec: 01/14/22 15:34 LRN [id number]) Cardio Equipment Upper Body Ergometer (UBE) Duration (Minutes) 10 RPM 60 Seat Position 10 Height 2.5 Other 4' fwd/bkwd. Therapeutic Exercises Prone Exercises Push up Plus Prone Exercise Name Push up Plus (scapular protraction) Side bilateral Reps/Minutes 10x Sitting Exercises Med n glides Sitting Exercise Name Median n glide (straight arm out to side with wrist flex/ ext) Side right Reps/Minutes 3' Comments Pt education in areas to get glide (wrist, elbow, shoulder, neck) Standing Exercises Wall Push up Plus Standing Exercise Name Wall Push up Plus Side bilateral Reps/Minutes 3' Comments phy and v cuing needed to get scapular protraction Median n. glide review Standing Exercise Name Median n glide review with hand on wall and turning away from wall Side right Reps/Minutes 2' Dips Standing Exercise Name Supported Dips in chair Side bilateral Reps/Minutes 2' Comments phys cuing to support body with legs for minimal dip due to hx dislocations Shoulder ER Standing Exercise Name Shoulder ER strengthening Side bilateral Equipment Used Lev 2 TBand Reps/Minutes 15x Shoulder Horiz AB/AD Standing Exercise Name Shoulder Horiz AB/AD Side bilateral Equipment Used Lev 1 TBand Reps/Minutes 10' Comments Phys cuing needed throughout due to pt poor spatial awareness. R Trunk SB Standing Exercise Name R trunk SB for C-curve in mid thoracic with apex on R. Side right Reps/Minutes 1' Isometric R elbow flex Standing Exercise Name Elbow flex/Ext Antonietta hold Side bilateral Comments MMT taken Elbow curls Standing Exercise Name Elbow curls with hand in sup/ neutral/prong Side right Reps/Minutes 15x each Manual Therapy Treatment Nerve Glides Median Nerve R Median n glide Body Position Sitting Reps/Duration 9' Self-Care/Home Management Treatment Education Patient Education Home Exercise Program Other Education Discussed with pt scapular protraction strengthening in sitting, incline and in decline. Recommended pt do against wall, inclined on table or prone. Activities Self-Care/Home Management Activities Issued & reviewed HEP: shoulder RC & scapular depression strengthening, R Trunk SB stretch (change in curvature), elbow & wrist strengthening, median nerve gliding. PT-OP-R Modalities Start: 11/16/21 18:20 Freq: Status: Active Protocol: Document 01/07/22 14:30 LRN (Rec: 01/07/22 16:33 LRN [id number]) Ultrasound Therapy Treatment R Triceps tendon @ Olecranon Process Treatment Duration (minutes) 4 Patient Position Sitting Coupling Medium Ultrasound Gel Applicator Size (cm2) 2 Mode Setting Pulsed Duty Cycle 50% Intensity Setting (w/cm2) 1.0 R Biceps Tendon Treatment Duration (minutes) 4 Patient Position Sitting Coupling Medium Ultrasound Gel Applicator Size (cm2) 2 Frequency Setting (mHz) 1 Mode Setting Pulsed Duty Cycle 50% Intensity Setting (w/cm2) 1.0 PT-OP-T Assessment and Plan Start: 11/16/21 18:20 Freq: Status: Active Protocol: Document 01/14/22 14:35 LRN (Rec: 01/14/22 15:34 LRN [id number]) Physical Therapy Assessment Goals Three Impairment Pain 6/10 with bending of elbow activities Impairment Pain that lingers for days when using R elbow flexors. Pain limiting function per UE Quickdash score of 31 (20-39% impaired, score 20-39) Short Term Goal (STG) Pt will be able to lift light weights groceries, with R UE with pain no greater than 3/10 . (12/13/21: Row ex with 20# without pain). (01/07/22: Pt carried 20# RUE with elbow 90deg's flexed with minimal discomfort, and in full extension without pain). STG Duration 01/08/22 (12/20/21: MET GOAL) [employer] Goal (LTG) Pt will be able to return to prior level of function of Physical Training, using R arm (20-25#) with intermittent mild to no R biceps pain. (01/14/22: Improved UE Quickdash score of 9 = 1-19% impaired). (01/14/22: Pt flared R biceps pain 4 days ago trying a pull up; therefore pt not able to perform at prior physical function, but pt is agreeable to discharge from therapy to a self care program). LTG Duration 02/22/22 (01/14/22: GOAL NOT MET). Two Impairment Decreased R elbow/shoulder strength Impairment R shoulder: AB, AD, ER, IR is 4/5 (Flex/Ext is 5/5). R elbow: flex/pronation is 4/ 5. Short Term Goal (STG) Pt will be educated in progressive R shoulder/elbow strengthening, scapular depression, & Trunk L SB stretch ex. (12/13/21: Pt I/S in progression of bicep strengthening for slow addition of weights) (01/14/22: Issued HEP: Shoulder, scapula, elbow and wrist strengthening ex's and stretch to trunk R SB). STG Duration 01/08/22 (01/14/22: MET GOAL) Fdc Goal (LTG) Pt will demonstrate improved R elbow strength to 4+/5 to 5/5 , with ability to carry groceries into house or do housework chores (taking out trash, lifting 20-25#) with minimal to no pain. (12/20/21: Pt able to lift 3 bags of groceries out of his car. Not assessed housework chores) LTG Duration 02/22/22 (01/07/22: MET GOAL) One Impairment Lacks appropriate self care HEP Impairment Posture: R shoulder elevated & C-curve of spine with apex on the left. Short Term Goal (STG) Pt will be educated R elbow edema & pain management. PT will be educated in proper posture (correct R shoulder elevation and spinal C-curve) STG Duration 11/22/21 (11/22/21: MET GOAL ) [employer] Goal (LTG) Pt will be independent in a self care HEP of R shoulder/ elbow strengthening ex's. (12/13/21: Progressed self care of progressive strengthening of Biceps at his local gym, increasing weights in 1-2.5# increments) (01/14/22: Issued HEP: Shoulder, scapula, elbow and wrist strengthening ex's and stretch to trunk R SB, due to change in curve with slight curve and apex on R, and UE median neural gliding). LTG Duration 02/22/22 (01/14/22: MET GOAL) Assessment Summary Assessment Pt presents with recent flare of R biceps tendonosis with attempt to return to his prior physical training program. Pt demonstrates a slight C- curve of his mid thoracic region with the apex on the R side and he no longer demonstrates an elevated R shoulder. Pt appears to have decreased lordosis and kyphosis, that may be part of his reason for general stiffness and soreness in his back. Physical therapy to help improve this postural dysfunction would be appropriate in the future if he has onset of back pain. The pt has not achieved his prior level of function and still experiences flare-ups of R biceps pain; therefore physical therapy in the future may be needed if pt is not able to progress independently to his prior level of function over time. Physical Therapy Plan Discharge Physical Therapy Discharge Comments Pt met goals except LTG #3. He was not able to return to prior level of function of Physical Training, using R arm (20-25#) with intermittent mild to no R biceps pain. The pt progression needs to be a slow progress due to intermittent flare ups as he tries to progress his strength . The pt may require further therapy in the future if he is not able to progress to return to function on his self care HEP. He may also benefit from scapular stabilization and therapy for his upper and lower back as his thoracic and lumbar curvatures are decreased. Thank you for your referral.
== END 2022-01-23 12:25 ==
LOC: PHYS 14:30
PROVIDERS: PCP Physician Assistant; Referring Provider Physician Assistant; Visit Provider Physician Assistant
DX: M75.20 Bicipital tendinitis, unspecified shoulder (principal); M62.81 Muscle weakness (generalized); M75.21 Bicipital tendinitis, right shoulder
CPT/HCPCS: 97035; 97110; 97140; 97162; 97535